=== PATIENT | male | born 1940 | race African-American/Black ===

== ENCOUNTER 2016-09-24 13:50 | Emergency (ER) | payer MEDICARE, OTHER ==
--- NOTE | 2016-09-24 14:12 | ED Physician Documentation ---
PD HPI SYNCOPE - Stated complaint Stated Complaint: PASSED OUT/GLF - Chief complaint Chief Complaint: Cardiac - History obtained from History obtained from: Patient - History of Present Illness Witnessed: Unwitnessed (but heard a thud from next room and went to him within seconds and he was on floor just awakening, so very brief LOC.) Timing - onset: How many minutes ago (45) Duration: Seconds Preceding symptoms: Abdominal pain (he says he was feeling okay during the day, had finished eating dinner with , and was clearing dishes from table ( in kitchen) and he felt onset of some nausea and epigastric discomfort for just a moment and then was aware of awakening on the floor. No lightheadedness per se.), Nausea / vomiting. No: Headache, Chest pain Associated symptoms: No: Headache, Chest pain, Palpitations, Dyspnea, Nausea / vomiting Contributing factors: Recent med change (he moved to [facility] from [place] couple months ago and had not established local PMD as yet (appt in a week, set up about a month ago). He has been off all his medications for about a month.) Injury occurred: Fell. No: Head injury, Neck injury Similar symptoms before: Diagnosis (had this occur once before when his AICD went off.) Recently seen: Not recently seen Review of Systems Constitutional: denies: Fever Nose: denies: Rhinorrhea / runny nose, Congestion Throat: denies: Sore throat Cardiac: denies: Chest pain / pressure, Palpitations, Pedal edema, Calf pain Respiratory: denies: Dyspnea, Cough, Wheezing GI: reports: Abdominal Pain (just for a moment prior to fainting, had felt okay earlier in the day.), Nausea. denies: Vomiting, Diarrhea : denies: Dysuria, Frequency Skin: denies: Rash, Lesions Musculoskeletal: denies: Neck pain, Back pain, Extremity swelling Neurologic: denies: Focal weakness, Numbness, Altered mental status, Headache, Head injury Endocrine: denies: Weight loss Immunocompromised: denies: Immunocompromised PD PAST MEDICAL HISTORY - Past Medical History Cardiovascular: Coronary artery disease, Arrhythmia (with AICD in place and has had it fire a few times over years. ) Respiratory: None Neuro: None Endocrine/Autoimmune: None - Present Medications Home Medications: Ambulatory Orders Medication Instructions Recorded Confirmed Amiodarone HCl 200 mg PO DAILY #15 tablet 09/24/16 Magnesium Chloride [Magnesium Dr] 64 mg PO DAILY #15 tablet.dr 09/24/16 Potassium Chloride 10 meq PO DAILY #15 tablet.er 09/24/16 Torsemide 20 mg PO DAILY #15 tablet 09/24/16 Warfarin [Coumadin] 5 mg PO DAILY #15 tablet 09/24/16 - Allergies Allergies/Adverse Reactions: Allergies Allergy/AdvReac Type Severity Reaction Status Date / Time codeine AdvReac Emesis Verified 09/24/16 13:58 - Living Situation Living Situation: reports: With spouse/s.o. Living Arrangement: reports: At home - Social History Does the pt smoke?: No Does the pt drink ETOH?: No Does the pt have substance abuse?: No - Family History Family history: reports: CAD PD ED PE NORMAL - Vitals Vital signs reviewed: Yes - General General: Alert and oriented X 3, No acute distress, Well developed/nourished - HEENT HEENT: Atraumatic, Ears normal, Pharynx benign - Neck Neck: Supple, no meningeal sign, No adenopathy - Cardiac Cardiac: RRR, No murmur, Other (AICD pouch left chest without signs of infection nor tenderness. ) - Respiratory Respiratory: Clear bilaterally - Abdomen Abdomen: Soft, Non tender - Back Back: No CVA TTP, No spinal TTP - Derm Derm: Normal color, Warm and dry - Extremities Extremities: No tenderness to palpate, Normal ROM s pain, No edema, No calf tenderness / cord - Neuro Neuro: Alert and oriented X 3, public works commissioner 2-12 intact, No motor deficit, No sensory deficit, Normal speech, Other - Psych Psych: Normal mood, Normal affect Results - Vitals Vitals: Oxygen O2 Source Room air - Labs Labs: Laboratory Tests 09/24/16 09/24/16 09/24/16 14:15 14:15 14:15 WBC 5.9 RBC 4.25 L Hgb 13.4 L Hct 40.1 L MCV 94.4 H MCH 31.6 H MCHC 33.4 RDW 15.8 H Plt Count 178 MPV 7.4 Neut # 3.1 Lymph # 1.9 [place] # 0.6 Eos # 0.1 Baso # 0.1 Absolute Nucleated RBC 0.00 Nucleated RBCs 0.0 Sodium 140 Potassium 3.4 L Chloride 101 Carbon Dioxide 31 Anion Gap 8.0 BUN 16 Creatinine 1.2 Estimated GFR (MDRD) 71 L Glucose 151 H Calcium 9.1 Magnesium 2.1 Total Bilirubin 1.3 H AST 30 ALT 36 Alkaline Phosphatase 91 Troponin I < 0.04 B-Natriuretic Peptide Total Protein 7.2 Albumin 3.9 Globulin 3.3 Albumin/Globulin Ratio 1.2 Lipase 16 L 09/24/16 14:15 WBC RBC Hgb Hct MCV MCH MCHC RDW Plt Count MPV Neut # Lymph # [place] # Eos # Baso # Absolute Nucleated RBC Nucleated RBCs Sodium Potassium Chloride Carbon Dioxide Anion Gap BUN Creatinine Estimated GFR (MDRD) Glucose Calcium Magnesium Total Bilirubin AST ALT Alkaline Phosphatase Troponin I B-Natriuretic Peptide 611 H Total Protein Albumin Globulin Albumin/Globulin Ratio Lipase PD MEDICAL DECISION MAKING - ED course Complexity details: considered differential (concern for possible AICD firing/ dysrhythmia (if so, it is good the AICD fired). We tried to interrogate the AICD here but could not get the info to download to [employer]). So unable to verify if it was arrhythmia. ), d/w network security consultant ([place], Cardiology at [place], who felt it not crucial to interrogate the AICD, since even if it did go off, the treatment would be resuming his antiarrhythmics he has been out of, so will give Rx for meds he needs to be on sooner, and then new PMD appt in next couple of weeks can recheck and also get his other meds refilled ( noncrucial ones like statin). ) Departure - Departure Disposition: 01 Home, Self Care Clinical Impression: Syncope Qualifiers: Syncope type: unspecified Qualified Code(s): R55 - Syncope and collapse Condition: Stable Record reviewed to determine appropriate education?: Yes Instructions: ED Fainting Unkn Cause, ED Syncope Vasovagal Follow-Up: Vicki Chavez MD [Provider Admit Priv/Credential] - [facility] Group] Prescriptions: Amiodarone HCl 200 mg PO DAILY #15 tablet Warfarin [Coumadin] 5 mg PO DAILY #15 tablet Magnesium Chloride [Magnesium Dr] 64 mg PO DAILY #15 tablet. Potassium Chloride 10 meq PO DAILY #15 tablet.er Torsemide 20 mg PO DAILY #15 tablet Comments: Resume your usual medications (I wrote prescriptions for the ones that you should start right away, and then Dr. Sears can take care of the rest when he sees you in upcoming appt). I left off the Benazapril for now, to see how your BP does without it first. The other are more targeted at heart function and rhythm. Also call Cardiology to set up an appt to get a regular Cardiology group in this area. I talked with the on-call Customer Success Specialist today about the medication doses, and he also felt it was okay to be discharged home given how good you look. Discharge Date/Time: 09/24/16 16:35
[2016-09-24 14:58] LABS: BASOPHILS # (AUTO) 0.1 10^3/uL (0.0-0.1); BASOPHILS % (AUTO) 1.1 %; EOSINOPHILS # (AUTO) 0.1 10^3/uL (0.0-0.7); EOSINOPHILS % (AUTO) 2.5 %; HCT - HEMATOCRIT 40.1 % (42.0-52.0); HGB - HEMOGLOBIN 13.4 g/dL (14.0-18.0); LYMPHOCYTES # (AUTO) 1.9 10^3/uL (1.5-3.5); LYMPHOCYTES % (AUTO) 32.7 %; MEAN CORPUSCULAR HEMOGLOBIN 31.6 pg (27.0-31.0); MEAN CORPUSCULAR HGB CONC 33.4 g/dL (32.0-36.0); MEAN CORPUSCULAR VOLUME 94.4 fL (80.0-94.0); MEAN PLATELET VOLUME 7.4 fL (7.4-11.4); MONOCYTES # (AUTO) 0.6 10^3/uL (0.0-1.0); MONOCYTES % (AUTO) 10.5 %; NEUTROPHILS # (AUTO) 3.1 10^3/uL (1.5-6.6); NEUTROPHILS % (AUTO) 53.2 %; RED BLOOD COUNT 4.25 10^6/uL (4.70-6.10); RED CELL DISTRIBUTION WIDTH 15.8 % (12.0-15.0); UNCORRECTED WHITE BLOOD COUNT 5.9 x10^3/uL; WHITE BLOOD COUNT 5.9 x10^3/uL (4.8-10.8)
[2016-09-24 15:06] LABS: ALBUMIN/GLOBULIN RATIO 1.2 (1.0-2.2); BILIRUBIN,TOTAL 1.3 mg/dL (0.2-1.0); CALCIUM 9.1 mg/dL (8.5-10.3); CREATININE 1.2 mg/dL (0.6-1.2); MAGNESIUM 2.1 mg/dL (1.7-2.8); POTASSIUM 3.4 mmol/L (3.5-5.0); TOTAL PROTEIN 7.2 g/dL (6.7-8.2)
--- NOTE | 2016-09-24 15:20 | XRAY Preliminary Report ---
Exam: XR Chest 2 View PA/LAT IMPRESSION: No radiographically apparent acute abnormality in the chest. [facility] SITE ID: [id number]
--- NOTE | 2016-09-24 15:23 | XRAY Report ---
EXAM: CHEST RADIOGRAPHY EXAM DATE: 09/24/2016 02:53 PM. CLINICAL HISTORY: Syncope today. COMPARISON: None. TECHNIQUE: 2 views. FINDINGS: Lungs/Pleura: Accentuated interstitial markings appear chronic. Densities with curved margins overlyi ng the bilateral lung bases are likely secondary to artifact from overlying soft tissue. No focal con solidation evident. Blunting of the right costophrenic angle but no large pleural effusion bilaterall y. No pneumothorax. Mild hyperinflation. Mediastinum: Mild enlargement of the cardiac silhouette. Tortuous, atherosclerotic thoracic aorta. Anguiano rgical clips in the mediastinum. Other: Left chest dual-lead cardiac conduction device is in expected position. Status post median tara rnotomy. IMPRESSION: No radiographically apparent acute abnormality in the chest. [facility] Referring Provider Line: [phone] SITE ID: [id number]
[2016-09-24] MEDS ORDERED: POTASSIUM BICARB 25 MEQ TABLET PO STA (15:35)
[2016-09-24] MEDS ORDERED: POTASSIUM BICARB 25 MEQ TABLET PO ONE (15:40)
[2016-09-24 16:32] VITALS: BP 138/74
== END 2016-09-24 16:35 | disposition home or self-care (01) ==
LOC: ED 13:50
DX: R55 Syncope and collapse (principal); I44.7 Left bundle-branch block, unspecified; I25.10 Atherosclerotic heart disease of native coronary artery without angina pectoris; Z95.810 Presence of automatic (implantable) cardiac defibrillator; Z79.01 Long term (current) use of anticoagulants
CPT/HCPCS: 36415; 71020; 80053; 83690; 83735; 83880; 84484; 85025; 93005; 99284; A9270

== ENCOUNTER 2016-10-11 09:34 | Outpatient (CLI) | payer MEDICARE, OTHER | END 2016-10-11 09:35 | disposition home or self-care (01) | LOC: LAB.F 09:34 | PROVIDERS: ATTEND Family Medicine | DX: I48.91 Unspecified atrial fibrillation (principal) | CPT/HCPCS: 85610 ==

== ENCOUNTER 2016-10-25 08:50 | Outpatient (CLI) | payer MEDICARE, OTHER | END 2016-10-25 08:51 | disposition home or self-care (01) | LOC: LAB.F 08:50 | PROVIDERS: ATTEND Family Medicine | DX: I48.91 Unspecified atrial fibrillation (principal) | CPT/HCPCS: 85610 ==

== ENCOUNTER 2016-12-06 09:20 | Outpatient (CLI) | payer MEDICARE, OTHER | END 2016-12-06 09:21 | disposition home or self-care (01) | LOC: LAB.F 09:20 | PROVIDERS: ATTEND Family Medicine | DX: I48.91 Unspecified atrial fibrillation (principal) | CPT/HCPCS: 85610 ==

== ENCOUNTER 2016-12-20 09:59 | Outpatient (CLI) | payer MEDICARE, OTHER | END 2016-12-20 10:00 | disposition home or self-care (01) | LOC: LAB.F 09:59 | PROVIDERS: ATTEND Family Medicine | DX: I48.91 Unspecified atrial fibrillation (principal) | CPT/HCPCS: 85610 ==

== ENCOUNTER 2017-01-03 08:50 | Outpatient (CLI) | payer MEDICARE, OTHER | END 2017-01-03 08:51 | disposition home or self-care (01) | LOC: LAB.F 08:50 | PROVIDERS: ATTEND Family Medicine | DX: I48.91 Unspecified atrial fibrillation (principal) | CPT/HCPCS: 85610 ==

== ENCOUNTER 2017-01-31 08:53 | Outpatient (CLI) | payer MEDICARE, OTHER | END 2017-01-31 08:54 | disposition home or self-care (01) | LOC: LAB.F 08:53 | PROVIDERS: ATTEND Family Medicine | DX: I48.91 Unspecified atrial fibrillation (principal) | CPT/HCPCS: 85610 ==

== ENCOUNTER 2017-02-28 08:19 | Outpatient (CLI) | payer MEDICARE, OTHER | END 2017-02-28 08:20 | disposition home or self-care (01) | LOC: LAB.F 08:19 | PROVIDERS: ATTEND Family Medicine | DX: I48.91 Unspecified atrial fibrillation (principal) | CPT/HCPCS: 85610 ==

== ENCOUNTER 2017-03-07 08:03 | Outpatient (CLI) | payer MEDICARE, OTHER | END 2017-03-07 08:04 | disposition home or self-care (01) | LOC: LAB.F 08:03 | PROVIDERS: ATTEND Family Medicine | DX: I48.91 Unspecified atrial fibrillation (principal) | CPT/HCPCS: 85610 ==

== ENCOUNTER 2017-03-17 10:31 | Outpatient (CLI) | payer MEDICARE, OTHER ==
[2017-03-17 10:52] LABS: CALCIUM 9.6 mg/dL (8.5-10.3); CREATININE 2.1 mg/dL (0.6-1.2); MAGNESIUM 2.5 mg/dL (1.7-2.8)
== END 2017-03-17 10:32 | disposition home or self-care (01) ==
LOC: LAB 10:31
PROVIDERS: ATTEND Internal Medicine Cardiovascular Disease
DX: Z79.899 Other long term (current) drug therapy (principal)
CPT/HCPCS: 36415; 80048; 83735

== ENCOUNTER 2017-03-21 08:19 | Outpatient (CLI) | payer MEDICARE, OTHER | END 2017-03-21 08:20 | disposition home or self-care (01) | LOC: LAB.F 08:19 | PROVIDERS: ATTEND Family Medicine | DX: I48.91 Unspecified atrial fibrillation (principal) | CPT/HCPCS: 85610 ==

== ENCOUNTER 2017-04-10 10:11 | Outpatient (CLI) | payer MEDICARE, OTHER ==
[2017-04-10 11:00] LABS: CALCIUM 9.7 mg/dL (8.5-10.3); CREATININE 1.9 mg/dL (0.6-1.2)
== END 2017-04-10 10:12 | disposition home or self-care (01) ==
LOC: LAB 10:11
PROVIDERS: ATTEND Internal Medicine Cardiovascular Disease
DX: I42.0 Dilated cardiomyopathy (principal); N18.3 Chronic kidney disease, stage 3 (moderate)
CPT/HCPCS: 36415; 80048

== ENCOUNTER 2017-04-18 08:57 | Outpatient (CLI) | payer MEDICARE, OTHER ==
[2017-04-18 11:18] LABS: CALCIUM 9.5 mg/dL (8.5-10.3); CREATININE 1.9 mg/dL (0.6-1.2)
== END 2017-04-18 08:58 | disposition home or self-care (01) ==
LOC: LAB.F 08:57
PROVIDERS: ATTEND Internal Medicine Cardiovascular Disease
DX: I42.0 Dilated cardiomyopathy (principal); N18.3 Chronic kidney disease, stage 3 (moderate)
CPT/HCPCS: 36415; 80048

== ENCOUNTER 2017-05-12 14:21 | Outpatient (CLI) | payer MEDICARE, OTHER ==
[2017-05-12 15:04] LABS: BILIRUBIN,DIRECT 0.2 mg/dL (0.1-0.5); BILIRUBIN,TOTAL 1.1 mg/dL (0.2-1.0); TOTAL PROTEIN 7.2 g/dL (6.7-8.2)
== END 2017-05-12 14:22 | disposition home or self-care (01) ==
LOC: LAB 14:21
PROVIDERS: ATTEND Internal Medicine Cardiovascular Disease
DX: I48.0 Paroxysmal atrial fibrillation (principal)
CPT/HCPCS: 36415; 80076; 84443

== ENCOUNTER 2017-05-16 09:08 | Outpatient (CLI) | payer MEDICARE, OTHER | END 2017-05-16 09:09 | disposition home or self-care (01) | LOC: LAB.F 09:08 | PROVIDERS: ATTEND Family Medicine | DX: I48.91 Unspecified atrial fibrillation (principal) | CPT/HCPCS: 85610 ==

== ENCOUNTER 2017-05-23 08:23 | Outpatient (CLI) | payer MEDICARE, OTHER | END 2017-05-23 08:24 | disposition home or self-care (01) | LOC: LAB.F 08:23 | PROVIDERS: ATTEND Family Medicine | DX: I48.91 Unspecified atrial fibrillation (principal) | CPT/HCPCS: 85610 ==

== ENCOUNTER 2017-05-30 08:05 | Outpatient (CLI) | payer MEDICARE, OTHER | END 2017-05-30 08:06 | disposition home or self-care (01) | LOC: LAB.F 08:05 | PROVIDERS: ATTEND Family Medicine | DX: I48.91 Unspecified atrial fibrillation (principal) | CPT/HCPCS: 85610 ==

== ENCOUNTER 2017-06-06 08:04 | Outpatient (CLI) | payer MEDICARE, OTHER | END 2017-06-06 08:05 | disposition home or self-care (01) | LOC: LAB.F 08:04 | PROVIDERS: ATTEND Family Medicine | DX: I48.91 Unspecified atrial fibrillation (principal) | CPT/HCPCS: 85610 ==

== ENCOUNTER 2017-06-08 08:07 | Outpatient (CLI) | payer MEDICARE, OTHER ==
[2017-06-08 08:58] LABS: ALBUMIN 3.8 g/dL (3.2-5.5); BILIRUBIN,TOTAL 1.5 mg/dL (0.2-1.0); CALCIUM 9.7 mg/dL (8.5-10.3); CREATININE 1.3 mg/dL (0.6-1.2); TOTAL PROTEIN 7.5 g/dL (6.7-8.2)
[2017-06-08 09:38] LABS: THYROID STIMULATING HORMONE < 0.08 uIU/mL (0.34-5.60)
[2017-06-08 09:40] LABS: FREE T4 (FREE THYROXINE) 3.58 ng/dL (0.58-1.64)
== END 2017-06-08 08:08 | disposition home or self-care (01) ==
LOC: LAB 08:07
PROVIDERS: ATTEND Internal Medicine Cardiovascular Disease
DX: Z79.899 Other long term (current) drug therapy (principal)
CPT/HCPCS: 36415; 80053; 84439; 84443; 84481

== ENCOUNTER 2017-06-13 07:48 | Outpatient (CLI) | payer MEDICARE, OTHER | END 2017-06-13 07:49 | disposition home or self-care (01) | LOC: LAB.F 07:48 | PROVIDERS: ATTEND Family Medicine | DX: I48.91 Unspecified atrial fibrillation (principal) | CPT/HCPCS: 85610 ==

== ENCOUNTER 2017-06-27 07:17 | Outpatient (CLI) | payer MEDICARE, OTHER | END 2017-06-27 07:18 | disposition home or self-care (01) | LOC: LAB.F 07:17 | PROVIDERS: ATTEND Family Medicine | DX: I48.91 Unspecified atrial fibrillation (principal) | CPT/HCPCS: 85610 ==

== ENCOUNTER 2017-07-13 14:20 | Outpatient (CLI) | payer MEDICARE, OTHER | END 2017-07-13 14:21 | disposition home or self-care (01) | LOC: LAB.F 14:20 | PROVIDERS: ATTEND Family Medicine | DX: I48.91 Unspecified atrial fibrillation (principal) | CPT/HCPCS: 85610 ==

== ENCOUNTER 2017-07-26 09:31 | Emergency (ER) | payer MEDICARE, OTHER ==
[2017-07-26] MEDS ORDERED: IOPAMIDOL-300 100 ML VIAL IVP ONE (09:32)
--- NOTE | 2017-07-26 10:38 | ED Physician Documentation ---
History of Present Illness - Stated complaint Stated Complaint: SYNCOPAL EPISODE - Chief complaint Chief Complaint: Neuro - Additonal information Additional information: hx from pt 77 male low EF has AICD is on coumadin chronic cough recently started new med for his thyroid was in baseline health today went to the gas station to get coffee awoke on the bathroom floor had syncope but does not recall it no CP or palp does not know if his AICD fired does not know how long he was out for awoke with a BURKETT and bump on his head and sore R buttock got up and drove back home and told his family who brought him to the ER Review of Systems Eyes: denies: Loss of vision Ears: denies: Drainage/discharge Nose: denies: Epistaxis Cardiac: denies: Chest pain / pressure, Palpitations Respiratory: reports: Cough (chronic). denies: Dyspnea GI: denies: Abdominal Pain, Nausea, Vomiting Skin: reports: Abrasion (s) (head) Musculoskeletal: reports: Extremity pain (R buttock). denies: Neck pain Neurologic: reports: Headache, Head injury. denies: Focal weakness, Numbness Endocrine: reports: Easy bruising / bleeding PD PAST MEDICAL HISTORY - Past Medical History Cardiovascular: Congestive heart failure (from ischemic cardiomyopathy. Dr. Boyd describes an EF of 15%. First hospitalization for heart failure 1988 at , second was 08/17/08 at [facility] in [place]. This will be his third. ), Coronary artery disease (First AK was ~1972 followed by ACB in [facility] , in [place], [place]. He had his chest opened 3 times because of bleeding postop. Second ACB was 1986 at [place], [place]. He then had heart failure while visiting [facility] and was air lifted to [facility] with 3rd open heart surgey in 1988.), Peripheral Vascular Disease (with artery bypass both legs (2 separate surgeries) [place], [place] 1989's), Arrhythmia (Vfib with low EF and defibrillator implant 07/14/08. Cardiac Ablation [facility] 01/03/11. Syncope with vfib 2011 and adjusted 08/16/11 and 08/31/11. Repeat episodes of Vfib 04/2015, 05/2015 and meds adjusted and K supplemented. then had 4 more times during the month of 06/2015 in [place] and [place]. Syncope in [facility] and admitted to [facility] 07/06/15 with K and Mg supplemented. Had 5th episode that month 07/08/15. Released from hospital 07/08 after new battery implant and 6th episode in the car on the way home. Since then no further episodes. ) Respiratory: None Endocrine/Autoimmune: None GI: GERD, Ulcers (gastric and seen on EGD but never bled. ), Hiatal hernia, Other (presbyesopahgus with food bolus stuck and removed via EGD 2013 at [facility], [place], [place]) : Benign prostate hypertrophy (with UTI 10/02/10) HEENT: Chronic vision loss, Glaucoma, Other (dentures) Psych: None Musculoskeletal: Chronic back pain (lower thoracic and upper lumbar for years off and on. no change. ) Derm: None - Past Surgical History Past Surgical History: Yes General: Appendectomy (after exploratory lap in 1959's), Colonoscopy (), EGD ( for ulcer disease), Other (ventral hernia repair at [facility]) Cardiovascular: Other HEENT: Other (Gum surgery with 7 teeth removed May and June 2010. Had remaining teeth pulled with dentures 09/2013. ) - Present Medications Home Medications: Ambulatory Orders Medication Instructions Recorded Confirmed Amiodarone HCl 200 mg PO DAILY #15 tablet 09/24/16 07/26/17 Potassium Chloride 10 meq PO DAILY #15 tablet.er 09/24/16 07/26/17 Aspirin [Adult Low Dose Aspirin EC] 81 mg PO DAILY 03/10/17 07/26/17 Atorvastatin [Lipitor] 20 mg PO QPM 03/10/17 07/26/17 Benazepril HCl 5 mg PO DAILY 03/10/17 07/26/17 Folic Acid 800 mcg PO DAILY 03/10/17 07/26/17 Metoprolol Succinate/Hctz 50 mg PO DAILY 03/10/17 07/26/17 [Metoprolol ER-Hctz 50-12.5 mg] Cholecalciferol (Vitamin D3) 2,000 unit PO DAILY 03/11/17 07/26/17 [Vitamin D3] Cyanocobalamin (Vitamin B-12) 500 mcg SL DAILY 03/11/17 07/26/17 [Vitamin B-12 (500 mcg sublingual)] Latanoprost [Xalatan] 1 drops EACHEYE QPM 03/11/17 07/26/17 Magnesium Oxide [Mag Ox] 400 mg PO DAILY 03/11/17 07/26/17 [place]-3 Acid Ethyl Esters 1,400 mg PO DAILY 03/11/17 07/26/17 Pyridoxine HCl [Vitamin B-6] 100 mg PO DAILY 03/11/17 07/26/17 Melatonin 5 mg PO QPM PRN 07/26/17 07/26/17 Omeprazole 10 mg PO PRN PRN 07/26/17 07/26/17 Torsemide 20 mg PO DAILY 07/26/17 07/26/17 Warfarin [Coumadin] 3 mg PO DAILY 07/26/17 07/26/17 methIMAzole [Methimazole] 20 mg PO DAILY 07/26/17 07/26/17 - Allergies Allergies/Adverse Reactions: Allergies Allergy/AdvReac Type Severity Reaction Status Date / Time codeine AdvReac Emesis Verified 07/26/17 09:45 - Social History Does the pt smoke?: No Smoking Status: Never smoker Does the pt drink ETOH?: No Does the pt have substance abuse?: No - Immunizations Immunizations are current?: Yes Immunizations: TDAP >10years/unknown - POLST Patient has POLST: No POLST Status: DNR PD ED PE NORMAL - Vitals Vital signs reviewed: Yes - General General: Alert and oriented X 3 - HEENT HEENT: PERRL. No: Atraumatic (abrasion and TTP top of scalp) - Neck Neck: No bony TTP - Cardiac Cardiac: RRR. No: No murmur (+ murmur pt does not know if new) - Respiratory Respiratory: No respiratory distress, Clear bilaterally - Abdomen Abdomen: Soft, Non tender - Back Back: No spinal TTP, Other (TTP R buttock region no swelling, no lateral hip pain no short or rotated) - Derm Derm: Normal color - Extremities Extremities: No deformity - Neuro Neuro: Alert and oriented X 3, protective service specialist 2-12 intact, No motor deficit, No sensory deficit, Normal speech Eye Opening: Spontaneous Motor: Obeys Commands Verbal: Oriented GCS Score: 15 Results - Vitals Vitals: Vital Signs - 24 hr 07/26/17 07/26/17 09:35 13:03 Temperature 36.4 C L Heart Rate 58 L 60 Respiratory 18 16 Rate Blood Pressure 113/65 107/67 O2 Saturation 100 97 Oxygen O2 Source Room air - EKG (time done) 1011 Rate: Rate (enter#) (58) Rhythm: NSR Intervals: Wide QRS Ischemia: Non specific changes - Labs Labs: Laboratory Tests 07/26/17 07/26/17 07/26/17 10:54 10:54 10:54 WBC 6.3 RBC 4.60 L Hgb 12.3 L Hct 38.0 L MCV 82.6 MCH 26.7 L MCHC 32.3 RDW 18.1 H Plt Count 225 MPV 7.5 Neut # 4.2 Lymph # 1.1 L [place] # 0.9 Eos # 0.1 Baso # 0.1 Absolute Nucleated RBC 0.00 Nucleated RBC % 0.1 PT INR Sodium 140 Potassium 3.5 Chloride 102 Carbon Dioxide 30 Anion Gap 8.0 BUN 35 H Creatinine 1.3 H Estimated GFR (MDRD) 65 L Glucose 138 H Calcium 9.5 Troponin I < 0.04 07/26/17 10:54 WBC RBC Hgb Hct MCV MCH MCHC RDW Plt Count MPV Neut # Lymph # [place] # Eos # Baso # Absolute Nucleated RBC Nucleated RBC % PT 33.6 H INR 3.1 H Sodium Potassium Chloride Carbon Dioxide Anion Gap BUN Creatinine Estimated GFR (MDRD) Glucose Calcium Troponin I - Rads (name of study) CTH Radiology: See rad report (4 cm hypersdense mass likely meningioma rec CT with IV con) CTH with IV con Radiology: See rad report (large meningioma with vasogenic edema and shift, no hemorrhage) CT CS Radiology: See rad report (no fx) CXR Radiology: See rad report (AICD, cariomegaly, possible small effusions) PD MEDICAL DECISION MAKING - ED course ED course: went home to get AICD interrogation equipment CTH shows possible mass CTH with IV con shows meningioma with edema and shift gave decadron calling Prov consult neuro surg spoke to Dr Gaming neur surg who reviewed images - this is really an incidental finding and he does not feel pt needs transfer as there is no further wup to be done (cant have MRI 2/2 AICD) except perhaps EEG which can be done as an oupt - they will see pt in fup at neurodrug clinic [place] [facility] within 2 weeks and will call family at number provided to confirm time date location also as pt has CT X 2 over several hr with no bleeding felt no merit to place in obs for neruo checks and enxt days CT 2/2 coumadin, did not feel more steroids needed then spoke to Dr Villagran cardio at [facility] and pt did have a run of vtach this AM at the time of his gas station syncope, his AICD fired correctly, she does not feel pt needs transfer, rec he increase his amio to 200 mg three times a day, states he can safely hold his coumadin for three days aftet the head injury, and will see him in follow up in the next week, cardio office also to call family to schedule Departure - Departure Clinical Impression: V-tach, Syncope and collapse, Heart murmur, Brain mass Head injury Qualifiers: Encounter type: sequela Qualified Code(s): S09.90XS - Unspecified injury of head, sequela Condition: Fair Comments: You had a run of ventricular tachycardia this morning which is why you collapsed Your AICD fired as it was supposed to which is why you woke up again You hit your head and are on coumadin so we got a CT scan to see if there was bleeding in the brain - there was no bleeding, but we found a brain tumor called a meningioma, and we got some extra tests to further evaluate that as well. I spoke to a nerosurgeon Dr Gaming who reviewed you images - he does not feel you need to be admitted to the hospital for this tumor right now - but would like you to be seen in the neurosurgery clinic for further evaluation such as an EEG and discussion of how to manage this. And I spoke to a concrete precast moulder Dr Villagran - she recommends you increase your amiodarone to 200 mg three times a day. You should hold your coumadin for three days And you absolutely should not drive, swim, climb ladders, ride a bike etc - any activity where you or someone else could be hurt if you passed out again. Both clinics will call you to confirm the time date and location of your follow up appointments May take tylenol as needed for headache Return if worse in any way
[2017-07-26] MEDS: ACETAMINOPHEN 325 MG TABLET PO STA (10:46)
[2017-07-26 11:01] LABS: BASOPHILS # (AUTO) 0.1 10^3/uL (0.0-0.1); BASOPHILS % (AUTO) 1.3 %; EOSINOPHILS # (AUTO) 0.1 10^3/uL (0.0-0.7); EOSINOPHILS % (AUTO) 1.3 %; HGB - HEMOGLOBIN 12.3 g/dL (14.0-18.0); LYMPHOCYTES # (AUTO) 1.1 10^3/uL (1.5-3.5); LYMPHOCYTES % (AUTO) 17.4 %; MEAN CORPUSCULAR HEMOGLOBIN 26.7 pg (27.0-31.0); MEAN CORPUSCULAR HGB CONC 32.3 g/dL (32.0-36.0); MEAN CORPUSCULAR VOLUME 82.6 fL (80.0-94.0); MEAN PLATELET VOLUME 7.5 fL (7.4-11.4); MONOCYTES # (AUTO) 0.9 10^3/uL (0.0-1.0); MONOCYTES % (AUTO) 13.8 %; NEUTROPHILS # (AUTO) 4.2 10^3/uL (1.5-6.6); NEUTROPHILS % (AUTO) 66.2 %; PLT - PLATELET COUNT 225 10^3/uL (130-450); RED CELL DISTRIBUTION WIDTH 18.1 % (12.0-15.0); WHITE BLOOD COUNT 6.3 x10^3/uL (4.8-10.8)
[2017-07-26 11:13] LABS: CALCIUM 9.5 mg/dL (8.5-10.3); CREATININE 1.3 mg/dL (0.6-1.2)
[2017-07-26 11:19] LABS: INR 3.1 (0.8-1.2); PT - PROTHROMBIN TIME 33.6 secs (9.9-12.6)
--- NOTE | 2017-07-26 11:50 | CT Report ---
EXAM: CT HEAD EXAM DATE: 07/26/2017 10:47 AM. CLINICAL HISTORY: [place], [place], syncope. On Coumadin. COMPARISON: None. TECHNIQUE: Multiaxial CT images were obtained from the foramen magnum to the vertex. Reformats: Coron al. IV contrast: None. In accordance with CT protocol optimization, one or more of the following dose reduction techniques w ere utilized for this exam: automated exposure control, adjustment of mA and/or KV based on patient s ize, or use of iterative reconstructive technique. FINDINGS: Parenchyma: No intraparenchymal hemorrhage. No evidence of mass, midline shift, or CT findings of acu te infarction. James-white differentiation is distinct. Diffuse chronic microangiopathic white matter changes are evident. Extraaxial Spaces: Large left prepontine mass with potential cavernous sinus extension measures 4.5 x 3.0 x 2.9 cm. Attenuation 40 HU. Ventricles: The ventricles and cortical sulci are enlarged, consistent with age-related tissue loss. Sinuses and orbits: Imaged paranasal sinuses, orbits, and mastoids show no significant abnormality. Bones: No evidence of fracture or calvarial defect. Other: Dense atherosclerotic arterial calcifications. IMPRESSION: 1. 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 Patient's AIC D is likely a contraindication for MRI. Suggest contrast enhanced head CT. 2. Generalized age-related cortical atrophic changes. 3. No intracranial hemorrhage evident. Exam discussed with Dr. Singletary on day of study at 11:45 AM. [facility] Referring Provider Line: [phone] SITE ID: [id number]
--- NOTE | 2017-07-26 11:56 | CT Report ---
EXAM: CT CERVICAL SPINE WITHOUT CONTRAST DATE: 07/26/2017 10:47 AM. HISTORY: Fall with head injury. COMPARISONS: None. TECHNIQUE: Thin-section axial images were acquired of the cervical spine without contrast. Post-proce ssing: Coronal and sagittal reformats. Other: None. In accordance with CT protocol optimization, one or more of the following dose reduction techniques w ere utilized for this exam: automated exposure control, adjustment of mA and/or KV based on patient s ize, or use of iterative reconstructive technique. FINDINGS: Alignment: Mild convex left cervical scoliosis. Bones: No fracture or bone lesion. Interspace Levels/Facets: Mild right neural foraminal narrowing at C3-C4 and C4-C5 levels due to unco vertebral joint hypertrophy. Right C4-C5 facet hypertrophy. Mild right C5-C6 uncovertebral joint hype rtrophy. Significant loss of disk space height at C4-C5 through C6-C7 levels. Musculature: Normal. No fatty atrophy. Other: The paravertebral and prevertebral soft tissues are unremarkable. Right apical lung process. A ICD lead noted within left subclavian vein. IMPRESSION: 1. Moderate cervical spine degenerative changes. 2. Scoliosis. 3. No fracture evident. [facility] Referring Provider Line: [phone] SITE ID: [id number]
--- NOTE | 2017-07-26 11:58 | XRAY Report ---
EXAM: CHEST RADIOGRAPHY EXAM DATE: 07/26/2017 11:44 AM. CLINICAL HISTORY: Cough syncope AICD. COMPARISON: Chest x-ray 03/10/2017. TECHNIQUE: 2 views. FINDINGS: Lungs/Pleura: Right costophrenic angle blunting may be mildly decreased compared to 03/10/2017. Ques tion scarring versus small pleural effusion. Mediastinum: Enlarged cardiac silhouette with similar appearance to prior chest x-ray. Sternotomy. Left subclavian AICD. Other: Diffuse osteopenia. IMPRESSION: 1. Right costophrenic angle blunting may be mildly decreased compared to 03/10/2017. Question scarrin g versus small pleural effusion. 2. Enlarged cardiac silhouette with similar appearance to prior chest x-ray. 3. Left subclavian AICD. [facility] Referring Provider Line: [phone] SITE ID: [id number]
--- NOTE | 2017-07-26 11:59 | XRAY Report ---
EXAM: RIGHT HIP AND PELVIS RADIOGRAPHY EXAM DATE: 07/26/2017 11:45 AM. HISTORY: Fall this morning. Right hip injury. COMPARISONS: None. TECHNIQUE: 1 view of the pelvis and 1 view of the hip. Crosstable lateral right hip film. FINDINGS: Bones: Normal. No fracture or bone lesion. Joints: The bilateral hip, pubis symphysis, and sacroiliac joints are preserved. Soft Tissues: Atherosclerotic arterial calcifications. IMPRESSION: No radiographic evidence for fracture. [facility] Referring Provider Line: [phone] SITE ID: [id number]
[2017-07-26] MEDS ORDERED: IOPAMIDOL-300 100 ML VIAL ONE (12:13)
--- NOTE | 2017-07-26 13:30 | CT Report ---
EXAM: CT HEAD WITH CONTRAST EXAM DATE: 07/26/2017 12:23 PM. CLINICAL HISTORY: Mass seen on unenhanced CT head performed earlier today. COMPARISON: Prior unenhanced CT head and cervical spine 07/26/2017 performed earlier today. TECHNIQUE: Multiaxial CT images were obtained from the foramen magnum to the vertex. Reformats: Coron al. IV contrast: 100 cc [id number]. In accordance with CT protocol optimization, one or more of the following dose reduction techniques w ere utilized for this exam: automated exposure control, adjustment of mA and/or KV based on patient s ize, or use of iterative reconstructive technique. Findings: Relevant images are indicated (image number, series number). Again seen is a suspected larg e extra-axial mass encompassing the left side cavernous sinus, left posterior tentorium, left sphenoi d wing consistent with a meningioma demonstrated diffuse homogenous enhancement, with scattered intri nsic vascularity, overall dimensions are similar to that described previously on the earlier unenhanc ed CT head and measure 4.3 x 4.7 x 3.9 cm AP by transverse by sagittal, with vasogenic edema within t he left temporal lobe, margins appear distinct with extension upon the left posterior 10th for him, p artial effacement of the pre-pontine cistern with mild contact, mass effect upon the sydnie, partial ef facement of the left CP angle. Again seen is moderate dilation of the ventricles, at the foramen of M onroe there is 5.6 mm [id number] midline shift. There is no herniation. There is no hemorrhage. Th ere are no other areas of suspicious enhancement of the brain, meninges. Orbital contents unremarkabl e. Impression: 1. Large left para cavernous extrinsic mass consistent with large meningioma spreading along the left greater wing of the sphenoid, left posterior tentorium, partially effacing the left pre-pontine cist maximiliano, left CP angle, also effacing the left temporal lobe, occupying a portion of the left middle cran ial fossa, it is seen significant focal vasogenic edema within the left temporal lobe, also producing 5.6 mm left to right midline shift, with moderate ventricular enlargement consistent with at least p artial ventricular entrapment. There is no herniation. Maximum dimension at least 4.7 cm diameter. Th ere is diffuse enhancement with intrinsic significant vascularity. Consider dedicated MRI brain IAC p rotocol with contrast for further characterization especially of the small structures surrounding the cavernous sinus, and cranial nerve involvement. [facility] Referring Provider Line: [phone] SITE ID: [id number]
[2017-07-26] MEDS: DEXAMETHASONE 10 MG/ML VIAL IVP STA (13:45)
[2017-07-26 17:23] VITALS: BP 110/62
[2017-07-26] MEDS: IOPAMIDOL-300 100 ML VIAL IVP ONE (17:33)
== END 2017-07-26 17:21 | disposition home or self-care (01) ==
LOC: ED 09:31
DX: I47.2 Ventricular tachycardia (principal); G93.9 Disorder of brain, unspecified; R55 Syncope and collapse; R01.1 Cardiac murmur, unspecified; S09.90XA Unspecified injury of head, initial encounter; W18.39XA Other fall on same level, initial encounter; Z95.810 Presence of automatic (implantable) cardiac defibrillator; Z79.01 Long term (current) use of anticoagulants; I50.9 Heart failure, unspecified; I25.10 Atherosclerotic heart disease of native coronary artery without angina pectoris; I25.2 Old myocardial infarction; K21.9 Gastro-esophageal reflux disease without esophagitis; Z87.11 Personal history of peptic ulcer disease; N40.0 Benign prostatic hyperplasia without lower urinary tract symptoms
CPT/HCPCS: 36415; 70450; 70460; 71046; 72125; 80048; 84484; 85025; 85610; 93005; 96374; 99284

== ENCOUNTER 2017-08-03 15:50 | Outpatient (CLI) | payer MEDICARE, OTHER | END 2017-08-03 15:51 | LOC: LAB.F 15:50 | PROVIDERS: ATTEND Family Medicine | DX: I48.91 Unspecified atrial fibrillation (principal) | CPT/HCPCS: 85610 ==

== ENCOUNTER 2017-08-14 09:45 | Outpatient (CLI) | payer MEDICARE, OTHER | END 2017-08-14 09:46 | disposition home or self-care (01) | LOC: LAB.F 09:45 | PROVIDERS: ATTEND Family Medicine | DX: I48.91 Unspecified atrial fibrillation (principal) | CPT/HCPCS: 85610 ==

== ENCOUNTER 2017-08-18 12:30 | Emergency (ER) | payer MEDICARE, OTHER ==
--- NOTE | 2017-08-18 14:24 | ED Physician Documentation ---
History of Present Illness - Stated complaint Stated Complaint: L FOREARM LAC - Chief complaint Chief Complaint: General - History obtained from History obtained from: Patient, Family (Spouse) - Additonal information Additional information: The patient is a 77-year-old male with history of cardiac rhythm disturbance, on Coumadin, who presents with bleeding from a skin tear on his left forearm. He fell this morning when getting up from a chair, cutting his left forearm against furniture. He denies any other injuries, and denies loss of consciousness. He was seen by his primary physician, and Steri-Strips were applied to the wound. However while driving home he noticed bleeding through the wound dressing. He is right hand dominant. Tetanus status is up-to-date. Review of Systems Ears: denies: Tinnitus/ringing Cardiac: denies: Chest pain / pressure Respiratory: denies: Dyspnea, Cough GI: denies: Abdominal Pain, Nausea, Vomiting : denies: Dysuria Skin: reports: Laceration (s). denies: Rash Musculoskeletal: denies: Neck pain, Back pain Neurologic: denies: Focal weakness, Numbness, Head injury, LOC PD PAST MEDICAL HISTORY - Past Medical History Cardiovascular: Congestive heart failure (from ischemic cardiomyopathy. Dr. Boyd describes an EF of 15%. First hospitalization for heart failure 1988 at , second was 08/17/08 at [facility] in [place]. This will be his third. ), Coronary artery disease (First NM was ~1972 followed by ACB in [facility] , in [place], [place]. He had his chest opened 3 times because of bleeding postop. Second ACB was 1986 at [place], [place]. He then had heart failure while visiting [facility] and was air lifted to [facility] with 3rd open heart surgey in 1988.), Peripheral Vascular Disease (with artery bypass both legs (2 separate surgeries) [place], [place] 1989's), Arrhythmia (Vfib with low EF and defibrillator implant 07/14/08. Cardiac Ablation [facility] 01/03/11. Syncope with vfib 2011 and adjusted 08/16/11 and 08/31/11. Repeat episodes of Vfib 04/2015, 05/2015 and meds adjusted and K supplemented. then had 4 more times during the month of 06/2015 in [place] and [place]. Syncope in [facility] and admitted to [facility] 07/06/15 with K and Mg supplemented. Had 5th episode that month 07/08/15. Released from hospital 07/08 after new battery implant and 6th episode in the car on the way home. Since then no further episodes. ) Respiratory: None Endocrine/Autoimmune: None GI: GERD, Ulcers (gastric and seen on EGD but never bled. ), Hiatal hernia, Other (presbyesopahgus with food bolus stuck and removed via EGD 2013 at [place], [place]) : Benign prostate hypertrophy (with UTI 10/02/10) HEENT: Chronic vision loss, Glaucoma, Other (dentures) Psych: None Musculoskeletal: Chronic back pain (lower thoracic and upper lumbar for years off and on. no change. ) Derm: None - Past Surgical History Past Surgical History: Yes General: Appendectomy (after exploratory lap in s), Colonoscopy (), EGD ( for ulcer disease), Other (ventral hernia repair at [facility]) Cardiovascular: Other HEENT: Other (Gum surgery with 7 teeth removed May and June 2010. Had remaining teeth pulled with dentures 09/2013. ) - Present Medications Home Medications: Ambulatory Orders Medication Instructions Recorded Confirmed Amiodarone HCl 200 mg PO DAILY #15 tablet 09/24/16 07/26/17 Potassium Chloride 10 meq PO DAILY #15 tablet.er 09/24/16 07/26/17 Aspirin [Adult Low Dose Aspirin EC] 81 mg PO DAILY 03/10/17 07/26/17 Atorvastatin [Lipitor] 20 mg PO QPM 03/10/17 07/26/17 Benazepril HCl 5 mg PO DAILY 03/10/17 07/26/17 Folic Acid 800 mcg PO DAILY 03/10/17 07/26/17 Metoprolol Succinate/Hctz 50 mg PO DAILY 03/10/17 07/26/17 [Metoprolol ER-Hctz 50-12.5 mg] Cholecalciferol (Vitamin D3) 2,000 unit PO DAILY 03/11/17 07/26/17 [Vitamin D3] Cyanocobalamin (Vitamin B-12) 500 mcg SL DAILY 03/11/17 07/26/17 [Vitamin B-12 (500 mcg sublingual)] Latanoprost [Xalatan] 1 drops EACHEYE QPM 03/11/17 07/26/17 Magnesium Oxide [Mag Ox] 400 mg PO DAILY 03/11/17 07/26/17 [place]-3 Acid Ethyl Esters 1,400 mg PO DAILY 03/11/17 07/26/17 Pyridoxine HCl [Vitamin B-6] 100 mg PO DAILY 03/11/17 07/26/17 Melatonin 5 mg PO QPM PRN 07/26/17 07/26/17 Omeprazole 10 mg PO PRN PRN 07/26/17 07/26/17 Torsemide 20 mg PO DAILY 07/26/17 07/26/17 Warfarin [Coumadin] 3 mg PO DAILY 07/26/17 07/26/17 methIMAzole [Methimazole] 20 mg PO DAILY 07/26/17 07/26/17 - Allergies Allergies/Adverse Reactions: Allergies Allergy/AdvReac Type Severity Reaction Status Date / Time codeine AdvReac Emesis Verified 08/18/17 13:08 - Social History Does the pt smoke?: No Smoking Status: Never smoker Does the pt drink ETOH?: No Does the pt have substance abuse?: No - Immunizations Immunizations are current?: Yes Immunizations: TDAP >10years/unknown - POLST Patient has POLST: No POLST Status: DNR PD ED PE NORMAL - Vitals Vital signs reviewed: Yes (Borderline diastolic hypertension.) - General General: Alert and oriented X 3, Other (Somewhat frail-appearing elderly male, who ambulated into the emergency department without difficulty.) - HEENT HEENT: Atraumatic - Neck Neck: No bony TTP - Cardiac Cardiac: RRR - Respiratory Respiratory: No respiratory distress, Clear bilaterally - Back Back: No spinal TTP - Derm Derm: No rash - Extremities Extremities: No deformity, Normal ROM s pain, Other (There is a 4 cm, irregularly-shaped skin tear on the lateral aspect of the left forearm. The wound edges are closed with Steri-Strips. Blood oozes from the wound. Distal neurovascular is intact.) - Neuro Neuro: Alert and oriented X 3, No motor deficit, Normal speech Results - Vitals Vitals: Oxygen O2 Source Room air - Labs Labs: Laboratory Tests 08/18/17 13:41 Whole Blood INR 2.5 H PD MEDICAL DECISION MAKING - ED course Complexity details: re-evaluated patient, considered differential, d/w patient, d/w family ED course: The patient presents with a superficial skin tear to the left forearm, with ongoing bleeding while on Coumadin with a therapeutic INR of 2.5. Treatment in the emergency department included cleaning of the wound, application of nonadhesive dressing and compression wrap. He is observed in the emergency department for 20 minutes following the application of dressing, and there was no evidence of bleeding through the dressing. I discussed with him and his appropriate wound care, as well as potentially worrisome signs or symptoms that should prompt reevaluation in the emergency department. - Sepsis Event Vital Signs: Oxygen O2 Source Room air Departure - Departure Disposition: Home, Self Care Clinical Impression: Anticoagulant long-term use Skin tear of forearm without complication Qualifiers: Encounter type: initial encounter Laterality: left Qualified Code(s): S51.812A - Laceration without foreign body of left forearm, initial encounter Condition: Stable Instructions: ED Avulsion Dermal Follow-Up: True Sears MD [Provider Admit Priv/Credential] - Comments: Keep a pressure dressing on the wound for the next 2 days. You can change the dressing daily. Follow up with your primary physician as planned. Return to the emergency department if you develop excessive bleeding, any sign of infection, or otherwise worsening symptoms. Discharge Date/Time: 08/18/17 14:58
[2017-08-18 15:58] VITALS: BP 118/90
== END 2017-08-18 14:58 | disposition home or self-care (01) ==
LOC: ED 12:30
DX: S51.812A Laceration without foreign body of left forearm, initial encounter (principal); W22.03XA Walked into furniture, initial encounter; I50.9 Heart failure, unspecified; Z79.01 Long term (current) use of anticoagulants; I25.10 Atherosclerotic heart disease of native coronary artery without angina pectoris; I25.2 Old myocardial infarction; K21.9 Gastro-esophageal reflux disease without esophagitis; Z87.11 Personal history of peptic ulcer disease
CPT/HCPCS: 85610; 99283; 99284

== ENCOUNTER 2017-09-05 08:10 | Outpatient (CLI) | END 2017-09-05 08:11 | disposition home or self-care (01) ==

== ENCOUNTER 2017-10-03 08:19 | Outpatient (CLI) | payer MEDICARE, OTHER | END 2017-10-03 08:20 | disposition home or self-care (01) | LOC: LAB.F 08:19 | PROVIDERS: ATTEND Family Medicine | DX: I48.91 Unspecified atrial fibrillation (principal) | CPT/HCPCS: 85610 ==

== ENCOUNTER 2017-10-10 09:07 | Outpatient (CLI) | payer MEDICARE, OTHER | END 2017-10-10 09:08 | disposition home or self-care (01) | LOC: LAB.F 09:07 | PROVIDERS: ATTEND Family Medicine | DX: I48.91 Unspecified atrial fibrillation (principal) | CPT/HCPCS: 85610 ==

== ENCOUNTER 2017-10-17 08:56 | Outpatient (CLI) | payer MEDICARE, OTHER | END 2017-10-17 08:57 | disposition home or self-care (01) | LOC: LAB.F 08:56 | PROVIDERS: ATTEND Family Medicine | DX: I48.91 Unspecified atrial fibrillation (principal) | CPT/HCPCS: 85610 ==

== ENCOUNTER 2017-10-24 08:30 | Outpatient (CLI) | payer MEDICARE, OTHER | END 2017-10-24 08:31 | disposition home or self-care (01) | LOC: LAB.F 08:30 | PROVIDERS: ATTEND Family Medicine | DX: I48.91 Unspecified atrial fibrillation (principal) | CPT/HCPCS: 85610 ==

== ENCOUNTER 2017-11-07 09:40 | Outpatient (CLI) | payer MEDICARE, OTHER | END 2017-11-07 09:41 | disposition home or self-care (01) | LOC: LAB.F 09:40 | PROVIDERS: ATTEND Family Medicine | DX: I48.91 Unspecified atrial fibrillation (principal) | CPT/HCPCS: 85610 ==

== ENCOUNTER 2017-11-14 10:00 | Outpatient (CLI) | payer MEDICARE, OTHER | END 2017-11-14 10:01 | disposition home or self-care (01) | LOC: LAB.F 10:00 | PROVIDERS: ATTEND Family Medicine | DX: I48.91 Unspecified atrial fibrillation (principal) | CPT/HCPCS: 85610 ==

== ENCOUNTER 2018-02-20 07:24 | Inpatient (IN) | payer MEDICARE, OTHER ==
[2018-02-20] MEDS ORDERED: FAMOTIDINE 20 MG/50 ML 50 ML IV ONE (07:47)
--- NOTE | 2018-02-20 07:56 | ED Physician Documentation ---
History of Present Illness - Stated complaint Stated Complaint: WEAKNESS/STOMACH PX - Chief complaint Chief Complaint: Abd Pain - Additonal information Additional information: hx from pt and EMR and records from [facility] that brought with her [address] Alexis discussed advanced directives with pt 02/2017 aand he was noted to be DNR DNI but no POLST is scanned into our EMR Pmhx: CAD, MS, CABG, ischemic cardiomyopathy, v fib, AICD, GERD PUD and HH dx by EGD, renal insuff, hypothyroidism believed 2/2 heart meds, meningioma being monitored, was on keppra not any more 2/2 side effects Pshx: CABG AICD EGD ventral hernia appy on xarelto among other meds to ED today CC upper abd pain waxing and waning but always there for several days worse with exertion some int CP too generally weak all over no fever cough SOA no NV some black stools now some diarrhea no dysuria no swelling Review of Systems Constitutional: reports: Fatigue. denies: Fever, Chills Throat: denies: Sore throat Cardiac: reports: Chest pain / pressure Respiratory: denies: Dyspnea GI: reports: Abdominal Pain, Bloody / black stool. denies: Nausea, Vomiting : denies: Dysuria Musculoskeletal: denies: Back pain Neurologic: reports: Generalized weakness Endocrine: reports: Easy bruising / bleeding Immunocompromised: denies: Immunocompromised PD PAST MEDICAL HISTORY - Past Medical History Cardiovascular: Congestive heart failure (from ischemic cardiomyopathy. Dr. Boyd describes an EF of 15%. First hospitalization for heart failure 1988 at , second was 08/17/08 at [facility] in [place]. This will be his third. ), Coronary artery disease (First MS was ~1972 followed by ACB in [facility], in [place], [place]. He had his chest opened 3 times because of bleeding postop. Second ACB was 1986 at [place], [place]. He then had heart failure while visiting [facility] and was air lifted to [facility] with 3rd open heart surgey in 1988.), Peripheral Vascular Disease (with artery bypass both legs (2 separate surgeries) [place], [place] s), Arrhythmia (Vfib with low EF and defibrillator implant 07/14/08. Cardiac Ablation [facility] 01/03/11. Syncope with vfib 2011 and adjusted 08/16/11 and 08/31/11. Repeat episodes of Vfib 04/2015, 05/2015 and meds adjusted and K supplemented. then had 4 more times during the month of 06/2015 in [place] and [place]. Syncope in [facility] and admitted to [facility] 07/06/15 with K and Mg supplemented. Had 5th episode that month 07/08/15. Released from hospital 07/09/15 after new battery implant and 6th episode in the car on the way home. Since then no further episodes. ) Respiratory: None Endocrine/Autoimmune: None GI: GERD, Ulcers (gastric and seen on EGD but never bled. ), Hiatal hernia, Other (presbyesopahgus with food bolus stuck and removed via EGD 2013 at [place], [place]) : Benign prostate hypertrophy (with UTI 10/02/10) HEENT: Chronic vision loss, Glaucoma, Other (dentures) Psych: None Musculoskeletal: Chronic back pain (lower thoracic and upper lumbar for years off and on. no change. ) Derm: None - Past Surgical History Past Surgical History: Yes General: Appendectomy (after exploratory lap in 1959's), Colonoscopy (s), EGD ( for ulcer disease), Other (ventral hernia repair at [facility]) Cardiovascular: Other HEENT: Other (Gum surgery with 7 teeth removed May and June 2010. Had remaining teeth pulled with dentures 09/2013. ) - Present Medications Home Medications: Ambulatory Orders Medication Instructions Recorded Confirmed Aspirin [Adult Low Dose Aspirin EC] 81 mg PO QDBREAKFAST 03/10/17 02/20/18 Benazepril HCl 5 mg PO 1200 03/10/17 02/20/18 Folic Acid 800 mcg PO QDBREAKFAST 03/10/17 02/20/18 Cholecalciferol (Vitamin D3) 2,000 unit PO QDDINNER 03/11/17 02/20/18 [Vitamin D3] Cyanocobalamin (Vitamin B-12) 500 mcg SL QDBREAKFAST 03/11/17 02/20/18 [Vitamin B-12 (500 mcg sublingual)] Latanoprost [Xalatan] 1 drops EACHEYE QPM 03/11/17 02/20/18 Magnesium Oxide [Mag Ox] 400 mg PO QDDINNER 03/11/17 02/20/18 Pyridoxine HCl [Vitamin B-6] 100 mg PO QDBREAKFAST 03/11/17 02/20/18 Omeprazole 20 mg PO QDAC 07/26/17 02/20/18 Torsemide 30 mg PO QDAC 07/26/17 02/20/18 methIMAzole [Methimazole] 5 mg PO Q2D@1000 07/26/17 02/20/18 Amiodarone HCl 200 mg PO QDAC 02/20/18 02/20/18 Metoprolol Succinate 50 mg PO QDDINNER 02/20/18 02/20/18 [place]-3/Dha/Epa/Fish Oil [Fish Oil 1 each PO BIDWM 02/20/18 02/20/18 1,360 mg Softgel] Potassium Chloride [Klor-Con 10] 10 meq PO QDBREAKFAST 02/20/18 02/20/18 Pravastatin [Pravachol] 40 mg PO QPM 02/20/18 02/20/18 Rivaroxaban [Xarelto] 15 mg PO QDDINNER 02/20/18 02/20/18 - Allergies Allergies/Adverse Reactions: Allergies Allergy/AdvReac Type Severity Reaction Status Date / Time codeine AdvReac Emesis Verified 02/20/18 07:48 - Social History Does the pt smoke?: No Smoking Status: Never smoker Does the pt drink ETOH?: No Does the pt have substance abuse?: No - Immunizations Immunizations are current?: Yes Immunizations: TDAP >10years/unknown - POLST Patient has POLST: No POLST Status: DNR PD ED PE NORMAL - Vitals Vital signs reviewed: Yes - General General: Alert and oriented X 3 - HEENT HEENT: Atraumatic, Other (very pale conj) - Neck Neck: Supple, no meningeal sign - Cardiac Cardiac: RRR (distant, slow) - Respiratory Respiratory: No respiratory distress, Clear bilaterally - Abdomen Abdomen: Soft, Other (TTP epigastric region, no palpable pulsatile mass, neg mruphys, ventral and RLQQ scars, no hernia) - Rectal Rectal: Other (brown strongly heme occult + stool QC passed) - Derm Derm: Normal color - Neuro Neuro: Alert and oriented X 3, No motor deficit, No sensory deficit, Normal speech Eye Opening: Spontaneous Motor: Obeys Commands Verbal: Oriented GCS Score: 15 Results - Vitals Vitals: Vital Signs - 24 hr 02/20/18 02/20/18 02/20/18 07:25 08:40 09:50 Temperature 36.7 C Heart Rate 64 70 71 Respiratory 16 22 16 Rate Blood Pressure 100/61 88/79 L 116/73 O2 Saturation 92 92 94 02/20/18 10:47 Temperature Heart Rate 70 Respiratory 18 Rate Blood Pressure 105/66 O2 Saturation 99 Oxygen O2 Source Room air - EKG (time done) 0734 Other comments: Other comments (paced at 70) - Labs Labs: Laboratory Tests 02/20/18 02/20/18 02/20/18 07:35 07:35 07:35 WBC 9.4 RBC 2.28 L Hgb 6.8 L* Hct 21.0 L MCV 91.9 MCH 29.9 MCHC 32.6 RDW 17.0 H Plt Count 274 MPV 7.1 L Neut # (Auto) 6.7 H Lymph # (Auto) 1.7 [place] # (Auto) 0.8 Eos # (Auto) 0.2 Baso # (Auto) 0.1 Absolute Nucleated RBC 0.06 Nucleated RBC % 0.7 Manual Slide Review Indicated Platelet Estimate NORMAL (130-450,000) Platelet Morphology NORMAL APPEARANCE RBC Morph Micro Appear 1+ MICROCYTOSIS PT INR APTT Sodium 133 L Potassium 4.6 Chloride 100 L Carbon Dioxide 26 Anion Gap 7.0 BUN 58 H Creatinine 2.0 H Estimated GFR (MDRD) 39 L Glucose 149 H Lactic Acid Calcium 9.2 Total Bilirubin 1.2 H AST 147 H ALT 186 H Alkaline Phosphatase 83 Troponin I < 0.04 Total Protein 6.7 Albumin 3.5 Globulin 3.2 Albumin/Globulin Ratio 1.1 Lipase 39 TSH Blood Type Blood Type Recheck Antibody Screen Antibody Identification Crossmatch 02/20/18 02/20/18 02/20/18 07:35 07:35 07:35 WBC RBC Hgb Hct MCV MCH MCHC RDW Plt Count MPV Neut # (Auto) Lymph # (Auto) Aiken # (Auto) Eos # (Auto) Baso # (Auto) Absolute Nucleated RBC Nucleated RBC % Manual Slide Review Platelet Estimate Platelet Morphology RBC Morph Micro Appear PT 25.4 H INR 2.3 H APTT 32.6 Sodium Potassium Chloride Carbon Dioxide Anion Gap BUN Creatinine Estimated GFR (MDRD) Glucose Lactic Acid Calcium Total Bilirubin AST ALT Alkaline Phosphatase Troponin I Total Protein Albumin Globulin Albumin/Globulin Ratio Lipase TSH 18.07 H Blood Type Blood Type Recheck O POSITIVE Antibody Screen Antibody Identification Crossmatch 02/20/18 02/20/18 08:21 08:21 WBC RBC Hgb Hct MCV MCH MCHC RDW Plt Count MPV Neut # (Auto) Lymph # (Auto) Aiken # (Auto) Eos # (Auto) Baso # (Auto) Absolute Nucleated RBC Nucleated RBC % Manual Slide Review Platelet Estimate Platelet Morphology RBC Morph Micro Appear PT INR APTT Sodium Potassium Chloride Carbon Dioxide Anion Gap BUN Creatinine Estimated GFR (MDRD) Glucose Lactic Acid 1.5 Calcium Total Bilirubin AST ALT Alkaline Phosphatase Troponin I Total Protein Albumin Globulin Albumin/Globulin Ratio Lipase TSH Blood Type O POSITIVE Blood Type Recheck Antibody Screen POSITIVE Antibody Identification Anti-E Crossmatch See Detail - Rads (name of study) CT AP Radiology: See rad report (no acute. inc attentuation of liver c/w amiodarone use, distended bladder, 4.4 cm infrarenal AAA s FF) CXR Radiology: See rad report (NACPD) PD MEDICAL DECISION MAKING - ED course ED course: GIB, likely upper given upper abd pain and hx PUD, with sig anemia in a 77 male on xarelto with underlying cardiac issues will transfuse, gave H2B and PPI, will admit for further care - will discuss TXA with admitting physician called hospitalist at [address] Alexis called back [phone] - hold TXA for now - she rec place in obs Departure - Departure Disposition: ED Place in Observation Clinical Impression: GI bleed Qualifiers: GI bleed type/associated pathology: unspecified gastrointestinal hemorrhage type Qualified Code(s): K92.2 - Gastrointestinal hemorrhage, unspecified Discharge Date/Time: 02/20/18 12:13
[2018-02-20 07:58] LABS: BASOPHILS # (AUTO) 0.1 10^3/uL (0.0-0.1); BASOPHILS % (AUTO) 0.7 %; EOSINOPHILS # (AUTO) 0.2 10^3/uL (0.0-0.7); EOSINOPHILS % (AUTO) 1.8 %; LYMPHOCYTES # (AUTO) 1.7 10^3/uL (1.5-3.5); LYMPHOCYTES % (AUTO) 17.7 %; MEAN CORPUSCULAR HEMOGLOBIN 29.9 pg (27.0-31.0); MEAN CORPUSCULAR HGB CONC 32.6 g/dL (32.0-36.0); MEAN CORPUSCULAR VOLUME 91.9 fL (80.0-94.0); MEAN PLATELET VOLUME 7.1 fL (7.4-11.4); MONOCYTES # (AUTO) 0.8 10^3/uL (0.0-1.0); MONOCYTES % (AUTO) 8.7 %; NEUTROPHILS # (AUTO) 6.7 10^3/uL (1.5-6.6); NEUTROPHILS % (AUTO) 71.1 %; PLT - PLATELET COUNT 274 10^3/uL (130-450); RED BLOOD COUNT 2.28 10^6/uL (4.70-6.10); WHITE BLOOD COUNT 9.4 x10^3/uL (4.8-10.8)
[2018-02-20 08:02] LABS: ALBUMIN 3.5 g/dL (3.2-5.5); ALBUMIN/GLOBULIN RATIO 1.1 (1.0-2.2); BILIRUBIN,TOTAL 1.2 mg/dL (0.2-1.0); CALCIUM 9.2 mg/dL (8.5-10.3); HGB - HEMOGLOBIN 6.8 g/dL (14.0-18.0); TOTAL PROTEIN 6.7 g/dL (6.7-8.2)
[2018-02-20 08:33] LABS: PLATELET ESTIMATE, MANUAL NORMAL (130-450,000) (NORMAL); PLATELET MORPHOLOGY NORMAL APPEARANCE (NORMAL)
--- NOTE | 2018-02-20 08:46 | CT Report ---
Reason: upper abd pain GIB Procedure Date: 02/20/2018 Accession Number: [id number] / [id number] Procedure: CT - Abdomen/Pelvis W/O CPT Code: FULL RESULT: EXAM: CT ABDOMEN AND PELVIS (CT KUB) EXAM DATE: 02/20/2018 08:08 AM. CLINICAL HISTORY: Upper abd pain, GIB. COMPARISONS: None. TECHNIQUE: Routine axial helical CT imaging was performed through the abdomen and pelvis without IV contrast. Reconstructions: Coronal and sagittal. In accordance with CT protocol optimization, one or more of the following dose reduction techniques were utilized for this exam: automated exposure control, adjustment of mA and/or KV based on patient size, or use of iterative reconstructive technique. FINDINGS: Lung Bases: No consolidation or effusion. Moderate cardiomegaly. Right Kidney/Ureter: No stones, hydronephrosis, or hydroureter. No perinephric fat stranding. Mild atrophy. Left Kidney/Ureter: No stones, hydronephrosis, or hydroureter. No perinephric fat stranding. Mild atrophy. 2 cm simple cyst. Other Solid Organs: Diffusely increased attenuation of the hepatic parenchyma, which can be seen with amiodarone usage or mineral deposition. Otherwise, noncontrast images of the solid organs demonstrate no gross abnormality. Gallbladder/Bile Ducts: Unremarkable. Peritoneal Cavity: No ascites or pneumoperitoneum. No bowel obstruction or abnormal stool burden. Pelvic Organs: Moderate distention of the urinary bladder. Probable prostatomegaly. Vasculature: Infrarenal saccular abdominal aortic aneurysm measures 4.4 x 3.3 cm (axial image 44). Moderate atherosclerosis. Probable femoral artery stents. Other: None. IMPRESSION: 1. No urinary tract stones or obstruction. No evidence of acute abnormality in the abdomen or pelvis. 2. Infrarenal abdominal aortic aneurysm measuring up to 4.4 cm in diameter. [facility]
--- NOTE | 2018-02-20 08:58 | XRAY Report ---
Reason: upper abd and chest pain Procedure Date: 02/20/2018 Accession Number: [id number] / [id number] Procedure: XR - Chest 2 View X-Ray CPT Code: 34543 FULL RESULT: EXAM: CHEST RADIOGRAPHY EXAM DATE: 02/20/2018 08:15 AM. CLINICAL HISTORY: Upper abd and chest pain. COMPARISON: CHEST 2 VIEW 07/26/2017 11:10 AM. TECHNIQUE: 2 views. FINDINGS: Lungs/Pleura: No focal consolidation evident. No large pleural effusion. No pneumothorax. Mild hyperinflation. Mediastinum: Moderate to marked enlargement of the cardiac silhouette as before. Other: Left subclavian dual lead cardiac conduction device stable. Sternotomy wires as before. IMPRESSION: No radiographically apparent acute abnormality in the chest. No significant change from prior. [facility]
[2018-02-20] MEDS ORDERED: SODIUM CHLORIDE FLUSH 0.9% 10 ML SYRINGE IVP PRN (11:17)
--- NOTE | 2018-02-20 11:23 | HISTORY & PHYSICAL EXAMINATION ---
Chief Complaint - Chief Complaint Chief Complaint: weakness and fatigue for a week History of Present Illness - Admitted From Admitted From:: ER/Home - History Obtained From Records Reviewed: [facility] History obtained from: Patient and Dr. Lomax Exam Limitations: [place] - History of Present Illness HPI Comment/Other: He is an absolutely claudine 77-year-old black male who moved to [facility] around 2016. [place]. It was her family that owned the [employer] [facility] which is on the corner of [address] [address] in [place]. So they have been coming to the [place] off and on for years from where they use to live in [place]. Even before he moved here, his life significantly slowed down because his episodes of ventricular fibrillation, bypass surgeries, and congestive heart failure. He had a huge [employer] in [place]. Used to take long walks doing rock hunting. Would come to [facility] to search the [facility] for agates. But by the time he moved in 2016 his mobility was diminished mainly because of cardiovascular issues. With his admission in 2017 here for CHF, he subsequently did cardiopulmonary rehab. Was able to do a lot of exercising until the end of summer 2018. Exercising sort of petered off. Initially his thought it was because of just normal "does not want to exercise". 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 Methimazole was increased from 1 tablet a day to 3 tablets a day. Was recently is being tapered down again to almost half a tablet a day because it was too effective and he was hypothyroid with his last blood test a month ago. In the last month he has been significantly more fatigued, increased abdominal bloating, and decreased exercise. Getting up in the morning to then get dressed, to then go eat breakfast is exhausting. He does not do his walks on the beach very much anymo re. In fact he hardly does any walking outside the house anymore. No edema, no orthopnea, no chest pain, no increased weight. This last week, he noticed that he was having midline abdominal aching. It was constant, unremitting, sort of like a hollow achy feeling. There is no blood in his stool. No bloody diarrhea. No bright red blood. No hematemesis. In the last day or 2 he was taking Mylanta and it seemed to help a little bit. He is on aspirin, and was switched from coumadin to xarelto for his afib. He does have a history of peptic ulcer disease back in the where an EGD showed ulcer but no active bleeding. He then had an EGD in 2013 in [facility] when he had a piece of chicken stuck in his esophagus. He came to the emergency room today when the fatigue was too great. He was evaluated by Dr. Lomax and his blood pressure was as low as 88/79 in the emergency room. He has subsequently received some IV fluids and is up to 101/63. He is afebrile, not in respiratory distress, and needing 2 L nasal cannula to saturate anywhere from 92-99%. His BUN and creatinine are 58 and 2, liver enzymes are elevated, TSH is up to 18.07, and his hemoglobin is 6.8. His previous liver function studies with his May 2017 check and February 2017 check were mildly elevated but not nearly as elevated as today. Troponins are negative. Baseline creatinine was as low as 1.2 in September 2016. For his CHF he said his torsemide doubled and his creatinine went up to 2.1 in March 2017. Was down to 1.3 in July 2017 and 2 today. Baseline hemoglobin is anywhere between 11.7-12.3. Stool is FOBT (+) and he is now admitted for chronic blood loss anemia in an elderly man with CAD and sob. History - Past Medical History Cardiovascular: reports: Congestive heart failure (from ischemic cardiomyopathy. Dr. Boyd describes an EF of 15%. First hospitalization for heart failure 1988 at , second was 08/17/08 at [facility] in [place]. This will be his third. ), Coronary artery disease (First [place] was ~1972 followed by ACB in [facility], in [place], [place]. He had his chest opened 3 times because of bleeding postop. Second ACB was 1986 at [place], [place]. He then had heart failure while visiting [facility] and was air lifted to [facility] with 3rd open heart surgey in 1988.), Peripheral Vascular Disease (with artery bypass both legs (2 separate surgeries) [place], [place] 1989's), Arrhythmia (Vfib with low EF and defibrillator implant 07/14/08. Cardiac Ablation [facility] 01/03/11. Syncope with vfib 2011 and adjusted 08/16/11 and 08/31/11. Repeat episodes of Vfib 04/2015, 05/2015 and meds adjusted and K supplemented. then had 4 more times during the month of 06/2015 in [place] and [place]. Syncope in [facility] and admitted to [facility] 07/06/15 with K and Mg supplemented. Had 5th episode that month 07/08/15. Released from hospital 07/09/15 after new battery implant and 6th episode in the car on the way home. Since then no further episodes. ) Respiratory: reports: None Endocrine/Autoimmune: reports: None GI: reports: GERD, Ulcers (gastric and seen on EGD but never bled. ), Hiatal hernia, Other (presbyesopahgus with food bolus stuck and removed via EGD 2013 at [facility], [place], [place]) : reports: Benign prostate hypertrophy (with UTI 10/02/10) HEENT: reports: Chronic vision loss, Glaucoma, Other (dentures) Psych: reports: None Musculoskeletal: reports: Chronic back pain (lower thoracic and upper lumbar for years off and on. no change. ) Derm: reports: None MRSA Hx?: No Other Past Medical History: Cataract. Meningioma - Past Surgical History General: reports: Appendectomy (after exploratory lap in 1959's), Colonoscopy (), EGD ( for ulcer disease), Other (ventral hernia repair at [facility]) Cardiovascular: reports: Other HEENT: reports: Other (Gum surgery with 7 teeth removed May and June 2010. Had remaining teeth pulled with dentures 09/2013. ) - Family & Social History Social History Notes: He was born in [facility], and moved to [place] for the weather when he was old enough. 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 He was for a short while to 1 woman and had 3 children with her. He was and visiting his mother and sister in the [place] area when he met his . She was friends with his siblings and they introduced him to her. They have subsequently been for 48 years. They lived mainly in [place] [facility] and moved up to [facility] after visiting every year. She always wanted to come back to the [facility], always wanted to be closer to her family, and they finally did it permanently in July 2016. He started smoking at the age of 26 and smoked 1-1/2 packs per day. 6 years ago he cut back to 1 cigarette a day and did 1 cigarette a day for 3 years. He quit 3 years ago. He has never had a problem with alcohol abuse or any form of recreational substance abuse. He and his live in their own home. It is single level. It is not completely handicapped accessible yet. But if he needed to be in a wheelchair and shower, the house is beginning for that. - Substance History Use: Uses substance without health or social issues: Tobacco - POLST Patient has POLST: No POLST Status: DNR Meds/Allgy - Home Medications Home Medications: Ambulatory Orders Medication Instructions Recorded Confirmed Aspirin [Adult Low Dose Aspirin EC] 81 mg PO QDBREAKFAST 03/10/17 02/20/18 Benazepril HCl 5 mg PO 1200 03/10/17 02/20/18 Folic Acid 800 mcg PO QDBREAKFAST 03/10/17 02/20/18 Metoprolol Succinate/Hctz 50 mg PO QDDINNER 03/10/17 02/20/18 [Metoprolol ER-Hctz 50-12.5 mg] Cholecalciferol (Vitamin D3) 2,000 unit PO QDDINNER 03/11/17 02/20/18 [Vitamin D3] Cyanocobalamin (Vitamin B-12) 500 mcg SL QDBREAKFAST 03/11/17 02/20/18 [Vitamin B-12 (500 mcg sublingual)] Latanoprost [Xalatan] 1 drops EACHEYE QPM 03/11/17 02/20/18 Magnesium Oxide [Mag Ox] 400 mg PO QDDINNER 03/11/17 02/20/18 Pyridoxine HCl [Vitamin B-6] 100 mg PO QDBREAKFAST 03/11/17 02/20/18 Omeprazole 20 mg PO QDAC 07/26/17 02/20/18 Torsemide 30 mg PO QDAC 07/26/17 02/20/18 methIMAzole [Methimazole] 5 mg PO Q2D@1000 07/26/17 02/20/18 Amiodarone HCl 200 mg PO QDAC 02/20/18 02/20/18 [place]-3/Dha/Epa/Fish Oil [Fish Oil 1 each PO BIDWM 02/20/18 02/20/18 1,360 mg Softgel] Potassium Chloride [Klor-Con 10] 10 meq PO QDBREAKFAST 02/20/18 02/20/18 Pravastatin [Pravachol] 40 mg PO QPM 02/20/18 02/20/18 Rivaroxaban [Xarelto] 15 mg PO QDDINNER 02/20/18 02/20/18 - Allergies Allergies/Adverse Reactions: Allergies Allergy/AdvReac Type Severity Reaction Status Date / Time codeine AdvReac Emesis Verified 02/20/18 07:48 Review of Systems - Constitutional Constitutional: reports: Fatigue, Malaise, Weakness. denies: Fever, Chills, Poor appetite, Diaphoresis, Night sweats, Weight gain, Weight loss - Eyes Eyes: denies: Pain, Irritation, Amaurosis, Blurred vision, Field loss, Vision loss - Ears, Nose & Throat Ears, Nose & Throat: reports: Hearing loss, Dentures. denies: Ear pain, Hearing aids, Tinnitus, Vertigo, Sore throat, Hoarseness, Mouth lesions, Bleeding gums - Cardiovascular Cariovascular: reports: Irregular heart rate, Palpitations, Lightheadedness, Exe rtional dyspnea, Decr. exercise tolerance. denies: Chest pain, Edema, Syncope, Orthopnea, Other - Respiratory Respiratory: reports: SOB with exertion. denies: Cough, Sputum production, Wheezing, Snoring, Orthopnea, SOB at rest - Gastrointestinal Gastrointestinal: reports: Abdominal pain, Abdominal distention, Bloating. denies: Constipation, Diarrhea, Change in bowel habits, Rectal bleeding, Black stools, Bloody stools, Nausea, Vomiting, Bile emesis, Coffee grounds emesis, Reflux/heartburn - Genitourinary Genitourinary: reports: Frequency, Nocturia (3-5 times a night). denies: Dysuria, Urgency, Hematuria, Incontinence, Flank pain, Urethral discharge - Musculoskeletal Musculoskeletal: denies: Muscle pain, Back pain, Muscle aches, Stiffness, Gout, Joint pain - Integumentary Integumentary: denies: Rash, Pruritis, Lesions, Dryness, Acne - Neurological Neurological: reports: General weakness. denies: Focal weakness, Headache, Dizziness, Numbness, Memory problems, Pre-existing deficit, Abnormal gait - Psychiatric Psychiatric: denies: Depression, Anxiety, Suicidal - Endocrine Endocrine: denies: Polyuria, Polydypsia, Polyphagia - Hematologic/Lymphatic Hematologic/Lymphatic: reports: Anemia. denies: Bruising, Petechiae, Blood clots, Lymphadenopathy Prior Level of Functionality: Because of decreasing mobility over the last year, the effort to take a bath is too great. So he does sponge baths. He is still able to get out of bed with some effort because of cardiovascular shortness of breath, get dressed, and get to the dining room table. He is to pay all the bills but stopped doing that with his last bypass surgery since it was getting harder to remember things and focus. He still can drive but has not been driving in the last year. 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 He has not been able to cut his roses much. Not walking on the beach like he likes to. Exam - Vital Signs Reviewed Vital Signs: Yes Vital Signs: Vital Signs x48h Temp Pulse Resp BP Pulse Ox 02/20/18 10:47 70 18 105/66 99 02/20/18 09:50 71 16 116/73 94 02/20/18 08:40 70 22 88/79 L 92 02/20/18 07:25 36.7 C 64 16 100/61 92 - Physical Exam General Appearance: positive: No acute distress, Alert, Other (Well-nourished well-developed elderly black male with teeth gone, delightful conversationalist. at the bedside) Eyes Bilateral: positive: PERRL, Other (Bilateral arcus senilis and muddy sclera) ENT: positive: Pharynx nml Neck: positive: No JVD. negative: Stiff neck, Carotid bruit Respiratory: negative: Chest non-tender, Wheezes, Rales, Rhonchi Cardiovascular: positive: Regular rate & rhythm (I do not hear A. fib), Systolic murmur. negative: Gallop/S4, Friction rub Abdomen: positive: Non-tender, No organomegaly, Nml bowel sounds, No distention. negative: Hepatomegaly, Splenomegaly Skin: positive: Warm, Dry Extremities: positive: Full ROM, No pedal edema Neurologic/Psychiatric: positive: Oriented x3, CN's nml (2-12), Motor nml, Weakness Conclusion/Plan - Problem List (1) Fatigue associated with anemia Conclusion/Plan: His fatigue and also be from the hypothyroidism associated with the methimazole and the overshooting of the TSH. I can understand why he and his were treating his fatigue strictly to the hypothyroidism, congestive heart failure, and not the anemia we have discovered. Plan: Admit to observation status for the anemia treatment and workup Continue to follow up with his outpatient provider with according to the TSH in the meantime continue the same lower dose of methimazole Mild hypoxemia noted, and will make sure that CHF is not contributing to this as well with a BNP (2) Chronic blood loss anemia Conclusion/Plan: He has a remote history of peptic ulcer disease in the . I doubt him to be able to get that old report. However he had an EGD in 2013 in [facility]. Plan: Get old records from [facility] General surgery consult for EGD Transfuse 2 units of blood. I rather transfused 2 then 1 in this elderly gentleman who has a reduced cardiovascular reserve and is at risk for TN and stroke (3) Acute renal failure superimposed on stage 3 chronic kidney disease Conclusion/Plan: Most likely due to hypotension, hypovolemia with the anemia. Suspect it is prerenal azotemia. Plan: Start gentle IV fluid hydration Reassess creatinine after 2 units of blood in the gentle hydration. Look to avoid putting him to congestive heart failure. Qualifiers: Acute renal failure type: unspecified Qualified Code(s): N17.9 - Acute kidney failure, unspecified; N18.3 - Chronic kidney disease, stage 3 (moderate) (4) Chronic systolic congestive heart failure, NYHA class 3 Conclusion/Plan: Fatigue and dyspnea is with minimal exertion. How much of this is from his hypothyroidism and his anemia and not true congestive heart failure? Plan: Avoid putting him into fluid overload status and watch his intake and output carefully. Resume torsemide tomorrow. Check BNP today and tomorrow. No echocardiogram since one was done recently (5) Anticoagulant long-term use Conclusion/Plan: I agree with Dr. Lomax's assessment that he is hemodynamically stable at this point. Hypotension is resolved with simple hydration. We will hold his me dications to avoid hypotension. I will not give reversal agent for the Xarelto at this time. (6) Hyperglycemia Conclusion/Plan: no previous hx of DM. Will check fasting and A1c in am. - Lab Results Fish Bones: 02/20/18 07:35 02/20/18 07:35 - EKG Results EKG Interpreted Independently: No EKG Comparison: Unchanged from prior EKG EKG Findings: A ventricular paced rhythm. No analysis attempted beyond that Core Measures - Anticipated LOS I expect patient to be DC'd or transferred within 96 hours.: Yes - DVT/VTE - Prophylaxis VTE/DVT Device ordered at admit?: Yes
[2018-02-20 11:50] LABS: INR 2.3 (0.8-1.2); PT - PROTHROMBIN TIME 25.4 secs (9.9-12.6)
[2018-02-20] MEDS ORDERED: PANTOPRAZOLE 80 MG in SODIUM CHLORIDE 0.9% 100ML 100 ML IV ONE (12:30)
[2018-02-20] MEDS: SODIUM CHLORIDE 0.9% 1,000 ML IV SCH ×2 (12:50→21:30)
[2018-02-20 13:28] LABS: BASOPHILS # (AUTO) 0.1 10^3/uL (0.0-0.1); BASOPHILS % (AUTO) 0.8 %; EOSINOPHILS # (AUTO) 0.2 10^3/uL (0.0-0.7); EOSINOPHILS % (AUTO) 2.5 %; LYMPHOCYTES # (AUTO) 1.1 10^3/uL (1.5-3.5); LYMPHOCYTES % (AUTO) 14.8 %; MEAN CORPUSCULAR HGB CONC 33.2 g/dL (32.0-36.0); MEAN CORPUSCULAR VOLUME 90.1 fL (80.0-94.0); MEAN PLATELET VOLUME 6.9 fL (7.4-11.4); MONOCYTES # (AUTO) 0.7 10^3/uL (0.0-1.0); MONOCYTES % (AUTO) 9.2 %; NEUTROPHILS # (AUTO) 5.5 10^3/uL (1.5-6.6); NEUTROPHILS % (AUTO) 72.7 %; PLT - PLATELET COUNT 245 10^3/uL (130-450); RED BLOOD COUNT 2.04 10^6/uL (4.70-6.10); RED CELL DISTRIBUTION WIDTH 16.7 % (12.0-15.0); WHITE BLOOD COUNT 7.5 x10^3/uL (4.8-10.8)
[2018-02-20] MEDS ORDERED: LIDO GARGLE 30 ML BOTTLE ONE (13:33)
--- NOTE | 2018-02-20 13:33 | ANESTHESIA ---
Pre-Anesthesia VS, & Labs - Diagnosis gi bleed - Procedure egd Vital Signs: Temp Pulse Resp BP Pulse Ox 36.7 C 50 L 17 96/52 L 93 02/20/18 12:27 02/20/18 12:27 02/20/18 12:27 02/20/18 12:27 02/20/18 12:27 Height 5 ft 9 in Weight (kg) 66.5 kg Body Mass Index 21.6 - NPO >8 hours - Lab Results Current Lab Results: Laboratory Tests 02/20/18 08:21: Blood Type O POSITIVE, Antibody Screen POSITIVE, Antibody Identification Anti-E, Crossmatch See Detail 02/20/18 08:21: Lactic Acid 1.5 02/20/18 07:35: PT 25.4 H, INR 2.3 H, APTT 32.6 02/20/18 07:35: Blood Type Recheck O POSITIVE 02/20/18 07:35: TSH 18.07 H 02/20/18 07:35: Troponin I < 0.04 02/20/18 07:35: Sodium 133 L, Potassium 4.6, Chloride 100 L, Carbon Dioxide 26, Anion Gap 7.0, BUN 58 H, Creatinine 2.0 H, Estimated GFR (MDRD) 39 L, Glucose 14 9 H, Calcium 9.2, Total Bilirubin 1.2 H, AST 147 H, ALT 186 H, Alkaline Phosphatase 83, Total Protein 6.7, Albumin 3.5, Globulin 3.2, Albumin/Globulin Ratio 1.1, Lipase 39 02/20/18 07:35: WBC 9.4, RBC 2.28 L, Hgb 6.8 L*, Hct 21.0 L, MCV 91.9, MCH 29.9, MCHC 32.6, RDW 17.0 H, Plt Count 274, MPV 7.1 L, Neut # (Auto) 6.7 H, Lymph # (Auto) 1.7, [place] # (Auto) 0.8, Eos # (Auto) 0.2, Baso # (Auto) 0.1, Absolute Nucleated RBC 0.06, Nucleated RBC % 0.7, Manual Slide Review Indicated, Platelet Estimate NORMAL (130-450,000), Platelet Morphology NORMAL APPEARANCE, RBC Morph Micro Appear 1+ MICROCYTOSIS Fish Bones: 02/20/18 07:35 02/20/18 07:35 Home Medications and Allergies Home Medications: Ambulatory Orders Amiodarone HCl 200 mg PO QDAC 02/20/18 [place]-3/Dha/Epa/Fish Oil [Fish Oil 1,360 mg Softgel] 1 each PO BIDWM 02/20/18 Potassium Chloride [Klor-Con 10] 10 meq PO QDBREAKFAST 02/20/18 Pravastatin [Pravachol] 40 mg PO QPM 02/20/18 Rivaroxaban [Xarelto] 15 mg PO QDDINNER 02/20/18 Active Medications Sodium Chloride (Normal Saline 0.9%) 1,000 mls @ 85 mls/hr IV .[id number] PIPO Last Admin: 02/20/18 12:50 Dose: 85 mls/hr Pantoprazole Sodium 80 mg/ (Sodium Chloride) 100 mls @ 10 mls/hr IV .Q10H PIPO Non-Formulary Medication (Latanoprost [Xalatan]) 1 drops EACHEYE QPM PIPO Polyethylene Glycol (Miralax) 17 gm PO DAILY PIPO Sodium Chloride (Normal Saline Flush 0.9%) 10 ml IVP PRN PRN PRN Reason: NEEDED PER PROVIDER ORDERS Sodium Chloride (Normal Saline Flush 0.9%) 10 ml IVP 0100,0900,1700 PIPO Aspirin [Adult Low Dose Aspirin EC] 81 mg PO QDBREAKFAST 03/10/17 Benazepril HCl 5 mg PO 1200 03/10/17 Folic Acid 800 mcg PO QDBREAKFAST 03/10/17 Metoprolol Succinate/Hctz [Metoprolol ER-Hctz 50-12.5 mg] 50 mg PO QDDINNER 03/10/17 Cholecalciferol (Vitamin D3) [Vitamin D3] 2,000 unit PO QDDINNER 03/11/17 Cyanocobalamin (Vitamin B-12) [Vitamin B-12 (500 mcg sublingual)] 500 mcg SL QDBREAKFAST 03/11/17 Latanoprost [Xalatan] 1 drops EACHEYE QPM 03/11/17 Magnesium Oxide [Mag Ox] 400 mg PO QDDINNER 03/11/17 Pyridoxine HCl [Vitamin B-6] 100 mg PO QDBREAKFAST 03/11/17 Omeprazole 20 mg PO QDAC 07/26/17 Torsemide 30 mg PO QDAC 07/26/17 methIMAzole [Methimazole] 5 mg PO Q2D@1000 07/26/17 Amiodarone HCl 200 mg PO QDAC 02/20/18 [place]-3/Dha/Epa/Fish Oil [Fish Oil 1,360 mg Softgel] 1 each PO BIDWM 02/20/18 Potassium Chloride [Klor-Con 10] 10 meq PO QDBREAKFAST 02/20/18 Pravastatin [Pravachol] 40 mg PO QPM 02/20/18 Rivaroxaban [Xarelto] 15 mg PO QDDINNER 02/20/18 Allergies/Adverse Reactions: Allergies Allergy/AdvReac Type Severity Reaction Status Date / Time codeine AdvReac Emesis Verified 02/20/18 07:48 Anes History & Medical History - Anesthetic History Anesthesia Complications: reports: No previous complications Family history of Anesthesia Complications: Denies Family history of Malignant Hyperthermia: Denies - Medical History Cardiovascular: reports: Congestive heart failure (from ischemic cardiomyopathy. Dr. Boyd describes an EF of 15%. First hospitalization for heart failure 1988 at , second was 08/17/08 at [facility] in [place]. This will be his third. ), Coronary artery disease (First [place] was ~1972 followed by ACB in [facility], in [place], [place]. He had his chest opened 3 times because of bleeding postop. Second ACB was 1986 at [place], [place]. He then had heart failure while visiting [facility] and was air lifted to [facility] with 3rd open heart surgey in 1988.), Peripheral Vascular Disease (with artery bypass both legs (2 separate surgeries) [place], [place] 1989's), Arrhythmia (Vfib with low EF and defibrillator implant 07/14/08. Cardiac Ablation [facility] 01/03/11. Syncope with vfib 2011 and adjusted 08/16/11 and 08/31/11. Repeat episodes of Vfib 04/2015, 05/2015 and meds adjusted and K supplemented. then had 4 more times during the month of 06/2015 in [place] and [place]. Syncope in [facility] and admitted to [facility] 07/06/15 with K and Mg supplemented. Had 5th episode that month 07/08/15. Released from hospital 07/09/15 after new battery implant and 6th episode in the car on the way home. Since then no further episodes. ) Pulmonary: reports: None Gastrointestinal: reports: GERD, Ulcers (gastric and seen on EGD but never bled. ), Hiatal hernia, Other (presbyesopahgus with food bolus stuck and removed via EGD 2013 at [facility], [place], [place]) Urinary: reports: Benign prostate hypertrophy (with UTI 10/02/10) Neuro: reports: None Musculoskeletal: reports: Chronic back pain (lower thoracic and upper lumbar for years off and on. no change. ) Endocrine/Autoimmune: reports: None Blood Disorders: reports: None Skin: reports: None Smoking Status: Former smoker Other Past Medical History: Cataract. Meningioma - Surgical History General: Appendectomy (after exploratory lap in 1959's), Colonoscopy (s), EGD ( for ulcer disease), Other (ventral hernia repair at [facility]) Eyes Ears Nose Throat (EENT): Other (Gum surgery with 7 teeth removed May and June 2010. Had remaining teeth pulled with dentures 09/2013. ) Cardiothoracic: Other Orthopedic: Other Exam General: Alert Dental: Dentures full Upper, Dentures full Lower Mouth Openin Fingerbreadth Neck Mobility: Normal Mallampati classification: II Thyromental Distance: greater than 6 cm Respiratory: No respiratory distress Cardiovascular: Normal S1, Normal S2 Plan Anesthesia Type: MAC Consent for Procedure(s) Verified and Reviewed: Yes Code Status: Attempt Resuscitation ASA classification: 3-Severe systemic disease Is this case an emergency?: No
[2018-02-20 13:34] LABS: HGB - HEMOGLOBIN 6.1 g/dL (14.0-18.0)
[2018-02-20] MEDS ORDERED: LIDO GARGLE 30 ML BOTTLE PO ONE (13:56)
[2018-02-20] MEDS ORDERED: EPINEPHrine 1 MG/ML AMP ONE (13:57)
[2018-02-20] MEDS ORDERED: LACTATED RINGERS 1,000 ML IV ONE (13:57)
[2018-02-20] MEDS ORDERED: KETAMINE 500 MG/10 ML VIAL IVP ONE (14:10)
[2018-02-20] MEDS: MAGNESIUM OXIDE 400 MG TABLET PO SCH (16:23)
[2018-02-20] MEDS: RIVAROXABAN 15 MG TABLET PO SCH (16:23)
[2018-02-20] MEDS: AMIODARONE 200 MG TABLET PO SCH (16:23)
[2018-02-20] MEDS: METOPROLOL SUCCINATE 50 MG TABLET PO SCH (16:23)
[2018-02-20] MEDS: SODIUM CHLORIDE FLUSH 0.9% 10 ML SYRINGE IVP SCH (16:24)
[2018-02-20] MEDS: PANTOPRAZOLE 80 MG in SODIUM CHLORIDE 0.9% 100ML 100 ML IV SCH (17:42)
[2018-02-20] MEDS ORDERED: MORPHINE 10 MG/ML VIAL IVP SCH (19:15)
[2018-02-20] MEDS: MAG HYDROX/AL HYDROX/SIMETH 30 ML UDC PO PRN (19:36)
[2018-02-20] MEDS ORDERED: ONDANSETRON 4 MG/2 ML VIAL IVP PRN (20:42)
[2018-02-20] MEDS ORDERED: PRAVASTATIN 40 MG TABLET PO SCH (21:00)
[2018-02-20] MEDS: LATANOPROST EACHEYE SCH (21:19)
[2018-02-21 00:10] LABS: BASOPHILS % (AUTO) 0.5 %; EOSINOPHILS # (AUTO) 0.1 10^3/uL (0.0-0.7); EOSINOPHILS % (AUTO) 1.5 %; HGB - HEMOGLOBIN 7.9 g/dL (14.0-18.0); LYMPHOCYTES # (AUTO) 1.1 10^3/uL (1.5-3.5); LYMPHOCYTES % (AUTO) 13.4 %; MEAN CORPUSCULAR HGB CONC 33.1 g/dL (32.0-36.0); MEAN CORPUSCULAR VOLUME 90.5 fL (80.0-94.0); MEAN PLATELET VOLUME 6.9 fL (7.4-11.4); MONOCYTES # (AUTO) 0.7 10^3/uL (0.0-1.0); MONOCYTES % (AUTO) 8.9 %; NEUTROPHILS # (AUTO) 6.4 10^3/uL (1.5-6.6); NEUTROPHILS % (AUTO) 75.7 %; PLT - PLATELET COUNT 234 10^3/uL (130-450); RED BLOOD COUNT 2.65 10^6/uL (4.70-6.10); RED CELL DISTRIBUTION WIDTH 16.3 % (12.0-15.0); WHITE BLOOD COUNT 8.4 x10^3/uL (4.8-10.8)
[2018-02-21] MEDS: SODIUM CHLORIDE FLUSH 0.9% 10 ML SYRINGE IVP SCH ×3 (00:56→17:12)
[2018-02-21] MEDS: PANTOPRAZOLE 80 MG in SODIUM CHLORIDE 0.9% 100ML 100 ML IV SCH ×2 (02:55→12:56)
--- NOTE | 2018-02-21 03:45 | Ultrasound Report ---
Reason: abnormal LFT Procedure Date: 02/21/2018 Accession Number: [id number] / [id number] Procedure: US - Abdomen Complete CPT Code: FULL RESULT: EXAM: ABDOMEN ULTRASOUND EXAM DATE: 02/21/2018 01:54 AM. CLINICAL HISTORY: Abnormal LFT. COMPARISON: ABDOMEN/PELVIS W/O 02/20/2018 7:50 AM. TECHNIQUE: Real-time scanning was performed with static images obtained. FINDINGS: Liver: The liver demonstrates increased echogenicity. It measures 17.9 cm. No focal lesion or intrahepatic biliary dilatation. Main portal vein flow: Hepatopetal. Gallbladder: The gallbladder wall is thickened, measuring 7 mm, with pericholecystic fluid, suggestive of acalculous cholecystitis. No cholelithiasis is identified. Biliary System: Common bile duct measures 5 mm. No intrahepatic or extrahepatic ductal dilatation. Pancreas: Visualized portion is unremarkable. Kidneys: Right: 9.6 cm longitudinally. Normal. No contour-deforming mass, stones, or hydronephrosis. Left: 10.2 cm longitudinally. Cortical cyst. No hydronephrosis or solid renal mass. Spleen: 11.4 cm. Normal in size and echotexture. Aorta and Inferior Vena Cava: Distal abdominal aortic aneurysm, seen on CT. Other: None. IMPRESSION: Gallbladder wall thickening, with pericholecystic fluid, suggestive of acalculous cholecystitis. No biliary dilatation. Echogenic liver. RADIA
[2018-02-21 06:00] LABS: ALBUMIN 3.2 g/dL (3.2-5.5); ALBUMIN/GLOBULIN RATIO 1.1 (1.0-2.2); BILIRUBIN,TOTAL 1.3 mg/dL (0.2-1.0); CALCIUM 8.3 mg/dL (8.5-10.3); CREATININE 2.2 mg/dL (0.6-1.2); TOTAL PROTEIN 6.1 g/dL (6.7-8.2)
[2018-02-21] MEDS: TORSEMIDE 20 MG TABLET PO SCH (07:12)
[2018-02-21 07:24] LABS: BASOPHILS % (AUTO) 0.4 %; EOSINOPHILS # (AUTO) 0.2 10^3/uL (0.0-0.7); HGB - HEMOGLOBIN 8.2 g/dL (14.0-18.0); LYMPHOCYTES # (AUTO) 1.2 10^3/uL (1.5-3.5); LYMPHOCYTES % (AUTO) 14.4 %; MEAN CORPUSCULAR HEMOGLOBIN 29.4 pg (27.0-31.0); MEAN PLATELET VOLUME 7.1 fL (7.4-11.4); MONOCYTES # (AUTO) 0.8 10^3/uL (0.0-1.0); MONOCYTES % (AUTO) 10.4 %; NEUTROPHILS # (AUTO) 5.8 10^3/uL (1.5-6.6); NEUTROPHILS % (AUTO) 72.8 %; PLT - PLATELET COUNT 240 10^3/uL (130-450); RED BLOOD COUNT 2.78 10^6/uL (4.70-6.10); RED CELL DISTRIBUTION WIDTH 16.4 % (12.0-15.0)
[2018-02-21] MEDS: SODIUM CHLORIDE 0.9% 1,000 ML IV SCH ×2 (07:32→08:51)
[2018-02-21 07:37] LABS: MEAN RETIC VALUE 101.9; RED BLOOD COUNT 2.68 10^6/uL (4.70-6.10)
[2018-02-21 08:11] LABS: % IRON SATURATION 3 % (20-50); IRON 11 ug/dL (45-182); TOTAL IRON BINDING CAPACITY 382 ug/dL (250-450); TRANSFERRIN 273 mg/dL (180-329)
[2018-02-21 08:26] LABS: FERRITIN 29.4 ng/mL (23.9-336.2)
[2018-02-21] MEDS: PYRIDOXINE 100 MG TABLET PO SCH (09:46)
[2018-02-21] MEDS: POTASSIUM CHLORIDE 10 MEQ CAPSULE PO SCH (09:46)
[2018-02-21] MEDS: AMIODARONE 200 MG TABLET PO SCH (09:46)
[2018-02-21] MEDS: OMEGA-3 ACID ETHYL ESTERS 1 GM CAPSULE PO SCH ×2 (09:46→17:11)
[2018-02-21] MEDS: POLYETHYLENE GLYCOL 3350 17 GM PACKET PO SCH (09:49)
[2018-02-21] MEDS: MAG HYDROX/AL HYDROX/SIMETH 30 ML UDC PO PRN ×2 (10:45→22:21)
[2018-02-21 12:18] LABS: HEPATITIS A IGM NON-REACTIVE (NON-REACTIVE); HEPATITIS B CORE ANTIBODY IGM NON-REACTIVE (NON-REACTIVE); HEPATITIS B SURFACE ANTIGEN NON-REACTIVE (NON-REACTIVE); HEPATITIS C ANTIBODY NON-REACTIVE (NON-REACTIVE)
--- NOTE | 2018-02-21 14:06 | PROVIDER PROGRESS NOTE ---
Subjective - Prog Note Date Prog Note Date: 02/21/18 Prog Note Time: 14:03 - Subjective Pt reports feeling: Worse Subjective: We had admitted him because he was symptomatically anemic. [place] to be mildly hypotensive, dehydrated, hypovolemic from anemia. He was fecal occult blood positive and the working diagnosis was that of slow GI bleed or slow chronic blood loss resulting in anemia. He is blood work shows him to have severe iron deficiency anemia. But this gentleman also appears to have anemia of chronic disease from chronic kidney disease. Even with blood transfusion and a slow gentle hydration, his creatinine worsened overnight. He is a liver function studies also worsened overnight. Now when he tries to eat or drink anything he has diffuse abdominal aching, increasing nausea, and he is miserable. He is getting sleepier. Current Medications - Current Medications Current Medications: Active Medications Al Hydroxide/Mg Hydroxide (Mylanta Plus) 30 ml PO Q4HR PRN PRN Reason: INDIGESTION Last Admin: 02/21/18 10:45 Dose: 30 ml Amiodarone HCl (Pacerone) 100 mg PO QDAC [facility] Sodium Chloride (Normal Saline 0.9%) 1,000 mls @ 85 mls/hr IV .[id number] [facility] Last Admin: 02/21/18 08:51 Dose: 85 mls/hr Magnesium Oxide (Mag Ox) 400 mg PO QDDINNER [facility] Last Admin: 02/20/18 16:23 Dose: 400 mg Methimazole (Tapazole) 5 mg PO Q2D@1000 [facility] Metoprolol Succinate (Toprol Xl) 50 mg PO QDDINNER [facility] Last Admin: 02/20/18 16:23 Dose: 50 mg Non-Formulary Medication (Latanoprost [Xalatan]) 1 drops EACHEYE QPM [facility] Last Admin: 02/20/18 21:19 Dose: Not Given [id number] Ethyl Esters (Lovaza) 1 gm PO BIDWM [facility] Last Admin: 02/21/18 09:46 Dose: 1 gm Ondansetron HCl (Zofran Inj) 4 mg IVP Q4HR PRN PRN Reason: Nausea / Vomiting Last Admin: 02/20/18 20:53 Dose: 4 mg Polyethylene Glycol (Miralax) 17 gm PO DAILY [facility] Last Admin: 02/21/18 09:49 Dose: 17 gm Potassium Chloride (Micro-K) 10 meq PO DAILYWM [facility] Last Admin: 02/21/18 09:46 Dose: 10 meq Pyridoxine HCl (Vitamin B-6) 100 mg PO QDBREAKFAST [facility] Last Admin: 02/21/18 09:46 Dose: 100 mg Rivaroxaban (Xarelto) 15 mg PO QDDINNER [facility] Last Admin: 02/20/18 16:23 Dose: 15 mg Sodium Chloride (Normal Saline Flush 0.9%) 10 ml IVP PRN PRN PRN Reason: NEEDED PER PROVIDER ORDERS Last Admin: 02/20/18 20:53 Dose: 10 ml Sodium Chloride (Normal Saline Flush 0.9%) 10 ml IVP 0100,0900,1700 [facility] Last Admin: 02/21/18 07:33 Dose: Not Given Torsemide (Torsemide) 30 mg PO QDAC [facility] Last Admin: 02/21/18 07:12 Dose: 30 mg Aspirin [Adult Low Dose Aspirin EC] 81 mg PO QDBREAKFAST 03/10/17 Benazepril HCl 5 mg PO 1200 03/10/17 Folic Acid 800 mcg PO QDBREAKFAST 03/10/17 Cholecalciferol (Vitamin D3) [Vitamin D3] 2,000 unit PO QDDINNER 03/11/17 Cyanocobalamin (Vitamin B-12) [Vitamin B-12 (500 mcg sublingual)] 500 mcg SL QDBREAKFAST 03/11/17 Latanoprost [Xalatan] 1 drops EACHEYE QPM 03/11/17 Magnesium Oxide [Mag Ox] 400 mg PO QDDINNER 03/11/17 Pyridoxine HCl [Vitamin B-6] 100 mg PO QDBREAKFAST 03/11/17 Omeprazole 20 mg PO QDAC 07/26/17 Torsemide 30 mg PO QDAC 07/26/17 methIMAzole [Methimazole] 5 mg PO Q2D@1000 07/26/17 Amiodarone HCl 200 mg PO QDAC 02/20/18 Metoprolol Succinate 50 mg PO QDDINNER 02/20/18 [place]-3/Dha/Epa/Fish Oil [Fish Oil 1,360 mg Softgel] 1 each PO BIDWM 02/20/18 Potassium Chloride [Klor-Con 10] 10 meq PO QDBREAKFAST 02/20/18 Pravastatin [Pravachol] 40 mg PO QPM 12/11/18 Rivaroxaban [Xarelto] 15 mg PO QDDINNER 02/20/18 Objective - Vital Signs/Intake & Output Reviewed Vital Signs: Yes Vital Signs: Vital Signs x48h Temp Pulse Resp BP Pulse Ox 02/21/18 08:00 36.8 C 70 18 90/56 L 98 Intake & Output: Intake & Output 02/18/18 02/19/18 02/20/18 02/21/18 23:59 23:59 23:59 23:59 Intake Total 0421.060 9125.75 Output Total 400 675 Balance 718.649 5116.75 - Objective General Appearance: positive: No acute distress, Mild distress (from nausea and can't think straight, he has become more slow to respond from yesterday to today) Eyes Bilateral: positive: PERRL ENT: positive: Pharynx nml, Other (dentures in today). negative: Pharyngeal erythema Neck: positive: No JVD. negative: Stiff neck, Carotid bruit Respiratory: positive: Chest non-tender, No respiratory distress. negative: Wheezes, Rales, Rhonchi Cardiovascular: positive: Regular rate & rhythm, Systolic murmur. negative: Gallop/S4, Friction rub Abdomen: positive: Nml bowel sounds, Tenderness (mild in epigastrium and around umbilicus, but not ruq), Other (mild gaseous distension). negative: Guarding, Rebound - Lab Results Fish Bones: 02/21/18 07:17 02/21/18 05:40 Other Labs: Lab Results x24hrs 02/21/18 02/21/18 02/21/18 Range/Units 07:17 05:49 05:49 WBC 8.0 (4.8-10.8) x10^3/uL RBC 2.78 L (4.70-6.10) 10^6/uL Hgb 8.2 L (14.0-18.0) g/dL Hct 25.6 L (42.0-52.0) % MCV 92.0 (80.0-94.0) fL MCH 29.4 (27.0-31.0) pg MCHC 32.0 (32.0-36.0) g/dL RDW 16.4 H (12.0-15.0) % Plt Count 240 (130-450) 10^3/uL MPV 7.1 L (7.4-11.4) fL Reticulocyte % (Auto) (0.5-2.3) % Neut # (Auto) 5.8 (1.5-6.6) 10^3/uL Lymph # (Auto) 1.2 L (1.5-3.5) 10^3/uL [place] # (Auto) 0.8 (0.0-1.0) 10^3/uL Eos # (Auto) 0.2 (0.0-0.7) 10^3/uL Baso # (Auto) 0.0 (0.0-0.1) 10^3/uL Absolute Nucleated RBC 0.09 x10^3/uL Nucleated RBC % 1.1 /100WBC Absolute Retic (0.020-0.110) 10^6/uL Sodium (135-145) mmol/L Potassium (3.5-5.0) mmol/L Chloride (101-111) mmol/L Carbon Dioxide (21-32) mmol/L Anion Gap (6-13) BUN (6-20) mg/dL Creatinine (0.6-1.2) mg/dL Estimated GFR (MDRD) (>89) Glucose (70-100) mg/dL Calcium (8.5-10.3) mg/dL Iron (45-182) ug/dL TIBC (250-450) ug/dL % Saturation (20-50) % Transferrin (180-329) mg/dL Ferritin 29.4 (23.9-336.2) ng/mL Total Bilirubin (0.2-1.0) mg/dL AST (10-42) IU/L ALT (10-60) IU/L Alkaline Phosphatase (42-121) IU/L Lactate Dehydrogenase 250 H (91-225) IU/L Troponin I (<0.49) ng/mL Total Protein (6.7-8.2) g/dL Albumin (3.2-5.5) g/dL Globulin (2.1-4.2) g/dL Albumin/Globulin Ratio (1.0-2.2) Vitamin B12 3712 H (180-914) pg/mL Hepatitis A IgM Ab (NON-REACTIVE) Hep Bs Antigen (NON-REACTIVE) Hep B Core IgM Ab (NON-REACTIVE) Hepatitis C Antibody (NON-REACTIVE) Hep C Ab Signal/Cutoff (<1.00) Blood Type Antibody Screen Antibody Identification Crossmatch 02/21/18 02/21/18 02/21/18 Range/Units 05:49 05:49 05:40 WBC (4.8-10.8) x10^3/uL RBC 2.68 L (4.70-6.10) 10^6/uL Hgb (14.0-18.0) g/dL Hct (42.0-52.0) % MCV (80.0-94.0) fL MCH (27.0-31.0) pg MCHC (32.0-36.0) g/dL RDW (12.0-15.0) % Plt Count (130-450) 10^3/uL MPV (7.4-11.4) fL Reticulocyte % (Auto) 4.26 H (0.5-2.3) % Neut # (Auto) (1.5-6.6) 10^3/uL Lymph # (Auto) (1.5-3.5) 10^3/uL [place] # (Auto) (0.0-1.0) 10^3/uL Eos # (Auto) (0.0-0.7) 10^3/uL Baso # (Auto) (0.0-0.1) 10^3/uL Absolute Nucleated RBC x10^3/uL Nucleated RBC % /100WBC Absolute Retic 0.114 H (0.020-0.110) 10^6/uL Sodium (135-145) mmol/L Potassium (3.5-5.0) mmol/L Chloride (101-111) mmol/L Carbon Dioxide (21-32) mmol/L Anion Gap (6-13) BUN (6-20) mg/dL Creatinine (0.6-1.2) mg/dL Estimated GFR (MDRD) (>89) Glucose (70-100) mg/dL Calcium (8.5-10.3) mg/dL Iron 11 L (45-182) ug/dL TIBC 382 (250-450) ug/dL % Saturation 3 L (20-50) % Transferrin 273 (180-329) mg/dL Ferritin (23.9-336.2) ng/mL Total Bilirubin (0.2-1.0) mg/dL AST (10-42) IU/L ALT (10-60) IU/L Alkaline Phosphatase (42-121) IU/L Lactate Dehydrogenase (91-225) IU/L Troponin I < 0.04 (<0.49) ng/mL Total Protein (6.7-8.2) g/dL Albumin (3.2-5.5) g/dL Globulin (2.1-4.2) g/dL Albumin/Globulin Ratio (1.0-2.2) Vitamin B12 (180-914) pg/mL Hepatitis A IgM Ab (NON-REACTIVE) Hep Bs Antigen (NON-REACTIVE) Hep B Core IgM Ab (NON-REACTIVE) Hepatitis C Antibody (NON-REACTIVE) Hep C Ab Signal/Cutoff (<1.00) Blood Type Antibody Screen Antibody Identification Crossmatch 02/21/18 02/20/18 02/20/18 Range/Units 05:40 23:55 08:21 WBC 8.4 (4.8-10.8) x10^3/uL RBC 2.65 L (4.70-6.10) 10^6/uL Hgb 7.9 L (14.0-18.0) g/dL Hct 24.0 L (42.0-52.0) % MCV 90.5 (80.0-94.0) fL MCH 30.0 (27.0-31.0) pg MCHC 33.1 (32.0-36.0) g/dL RDW 16.3 H (12.0-15.0) % Plt Count 234 (130-450) 10^3/uL MPV 6.9 L (7.4-11.4) fL Reticulocyte % (Auto) (0.5-2.3) % Neut # (Auto) 6.4 (1.5-6.6) 10^3/uL Lymph # (Auto) 1.1 L (1.5-3.5) 10^3/uL [place] # (Auto) 0.7 (0.0-1.0) 10^3/uL Eos # (Auto) 0.1 (0.0-0.7) 10^3/uL Baso # (Auto) 0.0 (0.0-0.1) 10^3/uL Absolute Nucleated RBC 0.09 x10^3/uL Nucleated RBC % 1.0 /100WBC Absolute Retic (0.020-0.110) 10^6/uL Sodium 132 L (135-145) mmol/L Potassium 4.7 (3.5-5.0) mmol/L Chloride 103 (101-111) mmol/L Carbon Dioxide 24 (21-32) mmol/L Anion Gap 5.0 L (6-13) BUN 60 H (6-20) mg/dL Creatinine 2.2 H (0.6-1.2) mg/dL Estimated GFR (MDRD) 35 L (>89) Glucose 156 H (70-100) mg/dL Calcium 8.3 L (8.5-10.3) mg/dL Iron (45-182) ug/dL TIBC (250-450) ug/dL % Saturation (20-50) % Transferrin (180-329) mg/dL Ferritin (23.9-336.2) ng/mL Total Bilirubin 1.3 H (0.2-1.0) mg/dL AST 160 H (10-42) IU/L ALT 219 H (10-60) IU/L Alkaline Phosphatase 101 (42-121) IU/L Lactate Dehydrogenase (91-225) IU/L Troponin I (<0.49) ng/mL Total Protein 6.1 L (6.7-8.2) g/dL Albumin 3.2 (3.2-5.5) g/dL Globulin 2.9 (2.1-4.2) g/dL Albumin/Globulin Ratio 1.1 (1.0-2.2) Vitamin B12 (180-914) pg/mL Hepatitis A IgM Ab (NON-REACTIVE) Hep Bs Antigen (NON-REACTIVE) Hep B Core IgM Ab (NON-REACTIVE) Hepatitis C Antibody (NON-REACTIVE) Hep C Ab Signal/Cutoff (<1.00) Blood Type O POSITIVE Antibody Screen POSITIVE Antibody Identification Anti-E Crossmatch See Detail 02/20/18 Range/Units 07:35 WBC (4.8-10.8) x10^3/uL RBC (4.70-6.10) 10^6/uL Hgb (14.0-18.0) g/dL Hct (42.0-52.0) % MCV (80.0-94.0) fL MCH (27.0-31.0) pg MCHC (32.0-36.0) g/dL RDW (12.0-15.0) % Plt Count (130-450) 10^3/uL MPV (7.4-11.4) fL Reticulocyte % (Auto) (0.5-2.3) % Neut # (Auto) (1.5-6.6) 10^3/uL Lymph # (Auto) (1.5-3.5) 10^3/uL [place] # (Auto) (0.0-1.0) 10^3/uL Eos # (Auto) (0.0-0.7) 10^3/uL Baso # (Auto) (0.0-0.1) 10^3/uL Absolute Nucleated RBC x10^3/uL Nucleated RBC % /100WBC Absolute Retic (0.020-0.110) 10^6/uL Sodium (135-145) mmol/L Potassium (3.5-5.0) mmol/L Chloride (101-111) mmol/L Carbon Dioxide (21-32) mmol/L Anion Gap (6-13) BUN (6-20) mg/dL Creatinine (0.6-1.2) mg/dL Estimated GFR (MDRD) (>89) Glucose (70-100) mg/dL Calcium (8.5-10.3) mg/dL Iron (45-182) ug/dL TIBC (250-450) ug/dL % Saturation (20-50) % Transferrin (180-329) mg/dL Ferritin (23.9-336.2) ng/mL Total Bilirubin (0.2-1.0) mg/dL AST (10-42) IU/L ALT (10-60) IU/L Alkaline Phosphatase (42-121) IU/L Lactate Dehydrogenase (91-225) IU/L Troponin I (<0.49) ng/mL Total Protein (6.7-8.2) g/dL Albumin (3.2-5.5) g/dL Globulin (2.1-4.2) g/dL Albumin/Globulin Ratio (1.0-2.2) Vitamin B12 (180-914) pg/mL Hepatitis A IgM Ab NON-REACTIVE (NON-REACTIVE) Hep Bs Antigen NON-REACTIVE (NON-REACTIVE) Hep B Core IgM Ab NON-REACTIVE (NON-REACTIVE) Hepatitis C Antibody NON-REACTIVE (NON-REACTIVE) Hep C Ab Signal/Cutoff 0.00 (<1.00) Blood Type Antibody Screen Antibody Identification Crossmatch Assessment/Plan - Problem List (1) Fatigue Impression: Now that I have spoken to his specialty sales consultant, has had his EGD, the overall picture is that of a gradually decreasing mobility, decreasing cardiovascular endurance, worsening thyroid disease, worsening chronic anemia, end-stage cardiomyopathy, worsening kidney disease and not much room to maneuver with improving all of this. He is received 2 units of packed cells for his anemia. He has had a good response with a rise in his hemoglobin. Stable blood pressure. No worsening of congestive heart failure. However, he seems to be worse today with regards to fatigue, nausea, and psychomotor slowing. Please see advanced care planning discussion under separate dictation In an effort to maximize symptom management And to address rising creatinine and liver function studies, will change status to inpatient status. Qualifiers: Fatigue type: other Qualified Code(s): R53.83 - Other fatigue (2) Chronic blood loss anemia Impression: Anemia is a combination of anemia of chronic disease, as well as iron deficiency anemia. EGD is negative for ulcer. At this point, with his overall prognosis, I would not recommend a colonoscopy be done. Plan: Start ferrous gluconate daily Start B12 sublingual daily Continue to work on his thyroid hormone levels (3) Acute renal failure superimposed on stage 3 chronic kidney disease Impression: Creatinine was 2 and now 2.3 today in spite of IV fluids, and 2 units of packed cells. This is a gentleman who has an ejection fraction of 15%. There is some element of prerenal azotemia. Blood pressure is been consistently 90-98 systolic with no sudden drops. He is now received adequate intravascular supplementation with his blood and IV fluids. In spite of this his creatinine i s worsened. Urine output has remained stable. Plan: Continue 85 cc an hour of normal saline. But again, I am very cognizant that I could put him into right-sided heart failure because of high pulmonary pressures as well as left-sided heart failure. We will stop after 1 L. Recheck in a.m. Qualifiers: Acute renal failure type: unspecified Qualified Code(s): N17.9 - Acute kidney failure, unspecified; N18.3 - Chronic kidney disease, stage 3 (moderate) (4) Chronic systolic congestive heart failure, NYHA class 3 Impression: This is resulted in ejection fraction of 15%, and V. fib/V. tach. He has an AICD in place that has gone off twice in the last year. He has had medications adjusted, mainly amiodarone. He is not a candidate for sotalol. Dr. Delatorre was very [id number] and states that she had an end-of-life conversation with the patient and his in December. in asking the surprise question "would you be surprised if the patient were alive in 1 year", she would be surprised and feels he may not even have a life expectancy of 6months. While she recognizes that his amiodarone is giving him toxicity including his thyroid and his liver, he cannot use sotalol. If we stop the amiodarone completely this would put him at risk for further arrhythmia. The most she would do is recommend a reduction of amiodarone to 100 mg. She is transitioning to palliative care cardiology. Her last week in active cardiology practice is this month. She will be off the month of March. She then starts the palliative care cardiology service with [facility] in April and she anticipates seeing Mr. Garcia then. (5) Hyperglycemia Impression: Repeat glucose 156. Check A1c. (6) Hypothyroidism (acquired) Impression: Iatrogenic, due to methimazole. That in turn is being used to suppress them because of amiodarone toxicity and hyperthyroidism. We are continuing the same dose that he came in on for methimazole. 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 The last echocardiogram this gentleman had documents not only end-stage cardiomyopathy with an ejection fraction of 15% but high pulmonary pressures. He is not a candidate for other medications. Decrease dose to 100 mg a day. Every discussed this with his and patient. (8) Meningioma, cerebral Impression: In July 2017 he had a fall. Because he was on Coumadin, and it was associated with syncope he had a CT of the head. The syncope was related to the fact that he had V. fib and had his AICD go off. Nevertheless, the CT scan then showed a large left pre-pontine mass with potential cavernous sinus extension measuring 4.5 x 3.0 x 2.9 cm. His AICD was a contraindication for MRI. No hemorrhage. A contrast CT was read as a large left para cavernous extrinsic mass consistent with large meningioma spreading along the left greater wing of the sphenoid, left posterior tentorium, partially effacing the left pre-pontine cistern. Left CP angle, also effacing the left temporal lobe, occupying a portion of the left middle cranial fossa. There was significant focal vasogenic edema within the left temporal lobe. He had a 5.6 mm left to right midline shift with moderate ventricular enlargement consistent with at least partial ventricular entrapment. No herniation. He has not had any imaging done since then. But he has had an opinion with neurosurgery. He is not an operative candidate. (9) Aneurysm of infrarenal abdominal aorta Impression: On CT scan done for his abdominal pain and liver enzymes, he does have an infrarenal abdominal aortic aneurysm. Again, most likely, he is not a surgical candidate nor in interventional radiology candidate.
[2018-02-21] MEDS: RIVAROXABAN 15 MG TABLET PO SCH (17:11)
[2018-02-21] MEDS: METOPROLOL SUCCINATE 50 MG TABLET PO SCH (17:11)
[2018-02-21] MEDS: MAGNESIUM OXIDE 400 MG TABLET PO SCH (17:11)
[2018-02-21] MEDS: LATANOPROST EACHEYE SCH (21:02)
[2018-02-21] MEDS ORDERED: ZOLPIDEM 5 MG TABLET PO PRN (23:13)
--- NOTE | 2018-02-22 00:18 | CONSULTATION NOTE ---
Referring Provider Name of Referring Provider:: Dr. Nella Alexis Consult Date: 02/20/18 Chief Complaint - Chief Complaint Chief Complaint: Anemia suspected UGI bleed - history of PUD - on aspirin History of Present Illness - Admitted From Admitted From:: [facility] ED - History Obtained From Records Reviewed: Yes History obtained from: Patient, chart and Dr. Alexis Exam Limitations: None - History of Present Illness HPI Comment/Other: Dr. Nella Alexis L/see this 60 asked that I see this exceedingly pleasant 77-year-old male in order to perform an EGD for presumed upper GI bleeding as a source of his anemia. The patient has had a history of peptic ulcer disease in the past. He is on aspirin. When he came to [facility]'s emergency department he is found to be hypotensive. As part of this workup he was found to be profoundly anemic. A very long story short, he has become progressively more deconditioned and tired over years but he has an extensive cardiac history as well as thyroid history as well as multiple other comorbidities that are extensively detailed in Dr. Alexis's history and physical and I will not restate them now. I cannot stress how detailed Dr. Alexis's history and physical is and for details I would turn any reader of this consult to Dr. Alexis's history and physical. History - Past Medical History Cardiovascular: reports: Congestive heart failure (from ischemic cardiomyopathy. Dr. Boyd describes an EF of 15%. First hospitalization for heart failure 1988 at , second was 08/17/08 at [place] in [place]. This will be his third. ), Coronary artery disease (First CO was ~1972 followed by ACB in [facility], in [place], [place]. He had his chest opened 3 times because of bleeding postop. Second ACB was 1986 at [place], [place]. He then had heart failure while visiting [facility] and was air lifted to [facility] with 3rd open heart surgey in 1988.), Peripheral Vascular Disease (with artery bypass both legs (2 separate surgeries) [place], [place] 1989'), Arrhythmia (Vfib with low EF and defibrillator implant 07/14/08. Cardiac Ablation [facility] 01/03/11. Syncope with vfib 2011 and adjusted 08/16/11 and 08/31/11. Repeat episodes of Vfib 04/2015, 05/2015 and meds adjusted and K supplemented. then had 4 more times during the month of 06/2015 in [place] and [place]. Syncope in [facility] and admitted to [facility] 07/06/15 with K and Mg supplemented. Had 5th episode that month 07/08/15. Released from hospital 07/09/15 after new battery implant and 6th episode in the car on the way home. Since then no further episodes. ) Respiratory: reports: None Neuro: reports: None Endocrine/Autoimmune: reports: None GI: reports: GERD, Ulcers (gastric and seen on EGD but never bled. ), Hiatal hernia, Other (presbyesopahgus with food bolus stuck and removed via EGD [address] [facility], [place], [place]) : reports: Benign prostate hypertrophy (with UTI 10/02/10) HEENT: reports: Chronic vision loss, Glaucoma, Other (dentures) Psych: reports: None Musculoskeletal: reports: Chronic back pain (lower thoracic and upper lumbar for years off and on. no change. ) Derm: reports: None MRSA Hx?: No Other Past Medical History: Cataract. Meningioma - Past Surgical History General: reports: Appendectomy (after exploratory lap in 1959's), Colonoscopy (), EGD ( for ulcer disease), Other (ventral hernia repair at [facility]) Ortho: reports: Other Cardiovascular: reports: Other HEENT: reports: Other (Gum surgery with 7 teeth removed May and June 2010. Had remaining teeth pulled with dentures 09/2013. ) - Family & Social History Social History Notes: He was born in [facility], and moved to [place] for the weather when he was old enough. 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 He was for a short while to 1 woman and had 3 children with her. He was and visiting his mother and sister in the [facility] area when he met his . She was friends with his siblings and they introduced him to her. They have subsequently been for 48 years. They lived mainly in [facility] and moved up to [facility] after visiting every year. She always wanted to come back to the [facility], always wanted to be closer to her family, and they finally did it permanently in July 2016. He started smoking at the age of 26 and smoked 1-1/2 packs per day. 6 years ago he cut back to 1 cigarette a day and did 1 cigarette a day for 3 years. He quit 3 years ago. He has never had a problem with alcohol abuse or any form of recreational substance abuse. He and his live in their own home. It is single level. It is not completely handicapped accessible yet. But if he needed to be in a wheelchair and shower, the house is beginning for that. - Substance History Use: Uses substance without health or social issues: Tobacco - POLST Patient has POLST: No POLST Status: DNR Meds/Allgy - Home Medications Home Medications: Ambulatory Orders Medication Instructions Recorded Confirmed Aspirin [Adult Low Dose Aspirin EC] 81 mg PO QDBREAKFAST 03/10/17 02/20/18 Benazepril HCl 5 mg PO 1200 03/10/17 02/20/18 Folic Acid 800 mcg PO QDBREAKFAST 03/10/17 02/20/18 Cholecalciferol (Vitamin D3) 2,000 unit PO QDDINNER 03/11/17 02/20/18 [Vitamin D3] Cyanocobalamin (Vitamin B-12) 500 mcg SL QDBREAKFAST 03/11/17 02/20/18 [Vitamin B-12 (500 mcg sublingual)] Latanoprost [Xalatan] 1 drops EACHEYE QPM 03/11/17 02/20/18 Magnesium Oxide [Mag Ox] 400 mg PO QDDINNER 03/11/17 02/20/18 Pyridoxine HCl [Vitamin B-6] 100 mg PO QDBREAKFAST 03/11/17 02/20/18 Omeprazole 20 mg PO QDAC 07/26/17 02/20/18 Torsemide 30 mg PO QDAC 07/26/17 02/20/18 methIMAzole [Methimazole] 5 mg PO Q2D@1000 07/26/17 02/20/18 Amiodarone HCl 200 mg PO QDAC 02/20/18 02/20/18 Metoprolol Succinate 50 mg PO QDDINNER 02/20/18 02/20/18 [place]ank-3/Dha/Epa/Fish Oil [Fish Oil 1 each PO BIDWM 02/20/18 02/20/18 1,360 mg Softgel] Potassium Chloride [Klor-Con 10] 10 meq PO QDBREAKFAST 02/20/18 02/20/18 Pravastatin [Pravachol] 40 mg PO QPM 02/20/18 02/20/18 Rivaroxaban [Xarelto] 15 mg PO QDDINNER 02/20/18 02/20/18 - Allergies Allergies/Adverse Reactions: Allergies Allergy/AdvReac Type Severity Reaction Status Date / Time codeine AdvReac Emesis Verified 02/20/18 07:48 Exam - Vital Signs Reviewed Vital Signs: Yes - Physical Exam General Appearance: positive: No acute distress Eyes Bilateral: positive: No lid inflammation, Conjunctivae nml, No scleral icterus ENT: positive: Dry mucous membranes Neck: positive: Trachea midline Respiratory: positive: Chest non-tender, No respiratory distress, Wheezes (Slight.) Cardiovascular: positive: Tachycardia Abdomen: positive: Non-tender, No organomegaly, Nml bowel sounds, No distention Skin: positive: Pallor (Relative due to his normal skin coloration. Sclera were pale.) Extremities: positive: Non-tender, Nml appearance Neurologic/Psychiatric: positive: Oriented x3 Conclusion/Plan - Diagnosis Diagnosis: Anemia thought to be upper GI in etiology - Plan Plan: Esophagogastroduodenoscopy with possible biopsies and/or polypectomies. Indications, procedure, alternatives (such as barium studies and even no procedure at all) and risks including but not limited to perforation requiring operative repair, bleeding with its risks, and were fully explained to him. Conscious sedation was discussed at length with him as were its risks including but not limited to loss of airway, aspiration, respiratory depression, and not enough relief of pain and anxiety and he indicated that he wished to have conscious sedation for his procedure. I explained that his posterior oropharynx would also be anesthetized for the procedure. I explained that MAC anesthesia is associated with a higher incidence of intestinal perforation. Review of his history does not reveal any significant systemic disease that would contraindicate use of conscious sedation or MAC anesthesia. All questions were fully answered. Verbal and written consent was obtained. The patient in preparation for his esophagogastroduodenoscopy has been n.p.o. 45 minutes of [id number] time spent with the patient the majority of which was spent in discussion Angeline disclaimer: This document was created in part using voice recognition technology. Because of the inherent limitations of the system ([employer]'s [employer] Dictate user manual states that the licensee understands that speech recognition is a statistical process and that recognition errors are inherent in the process), occasional same sounding word substitutions and grammatical errors do occur and persist despite proofreading. Please read this document for context. - Lab Results Lab results reviewed: Yes Fish Bones: 02/21/18 07:17 02/21/18 05:40 - Diagnostic Imaging Results Diagnostic Imaging Results: positive: Final report reviewed - EKG Results EKG Interpreted Independently: No
[2018-02-22] MEDS: SODIUM CHLORIDE FLUSH 0.9% 10 ML SYRINGE IVP SCH ×2 (05:26→08:45)
[2018-02-22 05:41] LABS: ALBUMIN 3.2 g/dL (3.2-5.5); ALBUMIN/GLOBULIN RATIO 1.1 (1.0-2.2); BILIRUBIN,TOTAL 1.8 mg/dL (0.2-1.0); CALCIUM 8.6 mg/dL (8.5-10.3); CREATININE 2.7 mg/dL (0.6-1.2); TOTAL PROTEIN 6.1 g/dL (6.7-8.2)
[2018-02-22 05:53] LABS: BASOPHILS % (AUTO) 0.9 %; LYMPHOCYTES % (AUTO) 13.3 %; MEAN CORPUSCULAR HEMOGLOBIN 29.6 pg (27.0-31.0); MEAN CORPUSCULAR HGB CONC 31.9 g/dL (32.0-36.0); MEAN CORPUSCULAR VOLUME 92.7 fL (80.0-94.0); MEAN PLATELET VOLUME 7.4 fL (7.4-11.4); MONOCYTES % (AUTO) 11.6 %; NEUTROPHILS % (AUTO) 73.2 %; PLT - PLATELET COUNT 244 10^3/uL (130-450); RED BLOOD COUNT 2.71 10^6/uL (4.70-6.10); RED CELL DISTRIBUTION WIDTH 16.8 % (12.0-15.0); WHITE BLOOD COUNT 9.4 x10^3/uL (4.8-10.8)
[2018-02-22 05:56] LABS: ABNORMAL LYMPHS % (MANUAL) 0 %
[2018-02-22 06:15] LABS: BAND NEUTROPHILS % (MANUAL) 6 %; BASOPHILS # (MANUAL) 0.1 10^3/uL (0-0.1); BASOPHILS % (MANUAL) 1 %; EOSINOPHILS # (MANUAL) 0.1 10^3/uL (0-0.7); LYMPHOCYTES % (MANUAL) 11 %; MONOCYTES # (MANUAL) 0.3 10^3/uL (0.0-1.0); NEUTROPHILS # (MANUAL) 7.9 10^3/uL (1.5-6.6); NEUTROPHILS % (MANUAL) 78 %; PLATELET ESTIMATE, MANUAL NORMAL (130-450,000) (NORMAL)
[2018-02-22 06:16] LABS: DIFFERENTIAL COMMENT MANUAL DIFFERENTIAL
[2018-02-22] MEDS ORDERED: AMIODARONE 200 MG TABLET PO SCH (07:00)
[2018-02-22 08:18] VITALS: BP 108/67
[2018-02-22] MEDS: OMEGA-3 ACID ETHYL ESTERS 1 GM CAPSULE PO SCH (08:44)
[2018-02-22] MEDS: POTASSIUM CHLORIDE 10 MEQ CAPSULE PO SCH (08:44)
[2018-02-22] MEDS: PYRIDOXINE 100 MG TABLET PO SCH (08:45)
[2018-02-22] MEDS: TORSEMIDE 20 MG TABLET PO SCH (08:45)
[2018-02-22] MEDS: POLYETHYLENE GLYCOL 3350 17 GM PACKET PO SCH (08:45)
[2018-02-22] MEDS ORDERED: methIMAzole 5 MG TABLET PO SCH (10:00)
--- NOTE | 2018-02-22 11:34 | Discharge Plan ---
Discharge Plan Disposition: Home, Self Care Condition: Fair Prescriptions: Amiodarone HCl 100 mg PO DAILY #30 tablet Diet: Low Sodium Activity Restrictions: Activity as Tolerated Shower Restrictions: No Driving Restrictions: Yes (no driving) Additional Instructions or Follow Up instructions: You were evaluated in the emergency room and then admitted to the hospital because you were unusually tired, fatigued, and more short of breath than usual. You have a long history of 2 bypass surgeries, and an AICD for ventricular fibrillation. The left part of your heart does not pump very well and is rated at 15%. You recently also had your thyroid affected by your amiodarone and are on thyroid suppression medication. You have chronic kidney disease and chronic kidney disease can sometimes give you anemia of chronic disease. In putting all of these together, you have been getting more and more tired. Dr. Delatorre has suggested that it may be time for you to do palliative care and may be transition to hospice care. After evaluating you with this admission, we found that you have a very low blood pressure, and are anemic. An endoscopy was performed and you do not have any bleeding ulcers. You were transfused 2 units of blood. The medicine we used to sedate you for the endoscopy really hung around longer than usual and you were sleepy, confused for over a day. 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 But your are stuck in having to use it because other medicines for your Vetricular Fib cannot be used. Dr. Delatorre has reviewed that. She would like me to lower the dose from 200 mg a day to 100 [address] CT scan done to evaluate your liver also shows that you have an aneurysm of the aorta, below the kidneys. It is 4.5 cm big. It is now time for you to go home. I have written the order for hospice evaluation. They will see you in your home next week. Dr. Delatorre also is transitioning to a palliative cardiology service. She opens up her new clinic in April of next year. She hopes to see you then as 1 of her new patients, but will hopefully also see you in the next couple of weeks and follow-up for this day. Please also see Dr. True Sears to see if you think you are a candidate for vitamins, treatment of the anemia of chronic kidney disease, or adjustment of your medications. No Smoking: If you smoke, Please STOP! Call for help. Follow-up with: True Sears MD [Primary Care Provider] -
--- NOTE | 2018-02-22 18:03 | ADVANCE CARE PLANNING NOTE ---
Advance Care Planning - Date/Time Date: 02/21/18 Time: 10:00 - Purpose of encounter Text: To explore his goals for further treatment and see if he understands his disease processes - Parties in attendance Parties in attendance: , patient, and hospitalist - Decisional capacity Decisional capacity of: Patient is intact. Alert and oriented. Sleepy today after endoscopy - Subjective/Patient's story Subjective/Patient's story: He was born in [facility] and moved to [place] for the weather when he was old enough. 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 He was for short while to one woman and had 3 children with her. He was and visiting his mother and sister in [facility] when he met his second . She was friends with his siblings and they introduced him to her. They have subsequently been for close to 49 years now. They lived in [facility] and moved to [facility] after visiting every year. She always wanted to come back to the [facility], always wanted to be close to her family, and they finally did it permanently in July 2016. He has been losing ground from a mobility perspective strictly from his congestive heart failure. He had his first heart attack with bypass surgery and horrendous complications in the 1970s. He has had 2 more surgeries after that for a total of 3. He ended up having his first congestive heart failure admission in 1988. Currently he is managed by Dr. Baldev Eddy and Dr. Delatorre from the [facility] cardiology clinic. He has end-stage congestive heart failure with an ejection fraction of 15%. Recently his amiodarone started giving him problems and he has been on suppressive therapy with methimazole because of hyperthyroidism. In the overshot it he became severely hypothyroid. In addition he has been developing worse and worse liver enzymes that they attribute to amiodarone toxicity and amiodarone induced cirrhosis. His warehouse associate does not feel he is a candidate for other medications. With her last talk to him in December, she felt it was time to transition to palliative care, possibly hospice. With this admission we have noticed that he has an infrarenal aortic aneurysm. And severe elevation of liver enzymes. And he has a large meningioma that was identified this last year. He stopped driving probably 2 years ago. He just cannot focus. His is also taken over paying the bills for the same reason. [place] used to love [place], collect agates, loves working in his garden. Loves reading. All of those have slowly followed by the way side as he has had less and less energy. While it was slow at first, and gradually creeping up on him, the last few months have been worse. He misses cutting his roses in his garden. Can't focus to read a book. More than anything he is very very tired. While he did hear what Dr. Delatorre had to say, he has not thought about it in the last couple of months. His and he have not been able to bring themselves to even fill out a POLST form. - Objective/Medical story Objective/Medical Story: This is a claudine 77-year-old white male who was first diagnosed with coronary artery disease in 1972. He was operated on and had bypass surgery in [facility] and had his chest open 3 times because of bleeding complications. His second bypass surgery was in 1986 at [facility]. He then presented with congestive heart failure in 1988 when he was visiting [facility] and had to be airlifted to [facility] and had a third open heart surgery that year. He was then admitted for congestive heart failure in August 2008. He moved to [facility] permanently in 2016. He is already been admitted once for congestive heart failure. He has an ejection fraction of 15%, with ventricular fibrillation and has an AICD in place. He is followed by [facility] cardiology, Dr. Kennedi East and Dr. Delatorre. In speaking to Dr. Delatorre he is status is tenuous. 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 He is developed hypothyroidism from the amiodarone. But is not a candidate for other medications. He has an infrarenal aortic aneurysm and he has a large, large meningioma. Dr. Delatorre says that he is at the end of the road, and most likely i s a candidate for palliative care. He was admitted here because of symptomatic fatigue. He just has no energy. We initially thought he was having a GI bleed because he was anemic and fecal occult blood positive stools. He has had an EGD and there is no ulcer identified. Inputting the overall picture together, this patient most likely has iron deficiency anemia, anemia of chronic disease, and ejection fraction of 15%, and a large meningioma affecting his thought process. His other past medical history is that of reflux disease, foreign body with EGD to remove it in 2014 in [place], benign prostatic hypertrophy, chronic vision loss, glaucoma, and dentures. - Goals of Care Goals of care determinations: He recognizes that he is slowing down, and would like to start making arrangements for end-of-life care. He just does not know where to start. He would like to stop coming to the hospital. While he is alert enough to enjoy his 's company, he finds that to be fading as well. When he could no longer be conscious, no longer enjoy her company, he definitely wants us to let him go. is very interested in transitioning to hospice. - Plan Plan: POLST form filled out today. Comfort measures only. Focus on symptom management and to avoid hospitalization as much as possible. Dr. Delatorre is transitioning to palliative care cardiology with a new practice in April 2018. He hopes to be her first patient Hospice referral made. - Code Status Code Status: Do Not Attempt Resuscitation - Time Spent on Advance Care Planning Time spent on advance care plannin
--- NOTE | 2018-02-27 07:47 | DISCHARGE SUMMARY ---
Physician: Nella Alexis MD DATE OF ADMISSION: 02/21/2018 DATE OF DISCHARGE: 02/22/2018 DISCHARGE DIAGNOSES 1. Fatigue. 2. Chronic blood loss. 3. Anemia of chronic disease from chronic kidney stage 3. 4. Chronic systolic congestive heart failure, [place] [employer] 3. 5. Hyperglycemia. 6. Hypothyroidism. 7. Amiodarone-induced cirrhosis. 8. Infrarenal abdominal aortic aneurysm. 9. Cerebral meningioma. PRINCIPAL PROCEDURES 1. Abdomen and pelvis CT shows lung bases that do not have consolidation or effusion. Moderate cardiomegaly is president. No stones in the kidneys. He has diffusely increased attenuation of the hepatic parenchyma seen with amiodarone usage or mineral deposition. Distention of his urinary bladder. Probable prostatomegaly. An infrarenal saccular abdominal aortic aneurysm at 4.4 x 3.3 cm. Femoral artery stents. 2. Abdominal ultrasound with gallbladder wall thickening, pericholecystic fluid, acalculous cholecystitis is suggested. He has a severely echogenic liver. 3. Chest x-ray: No radiographically apparent acute abnormality in the chest. 4. Blood cultures: No growth after 5 days. 5. Two units of packed cell transfusion. 6. EGD on 02/20/2018 with a normal esophagus and GE junction, stomach, and duodenum. DISCHARGE MEDICATIONS 1. Aspirin 81 mg p.o. daily. 2. Benazepril 5 mg p.o. daily. 3. Vitamin D 2000 units daily. 4. Vitamin B12 at 500 mcg sublingual daily. 5. Folic acid 800 mcg daily. 6. Xalatan 1 drop each eye daily. 7. Magnesium oxide 400 mg p.o. daily. 8. Methimazole 5 mg every other day. 9. Metoprolol succinate 50 mg daily. 10. [place]-3 fish oil capsule p.o. b.i.d. 11. Omeprazole 20 mg daily. 12. Potassium 10 mEq daily. 13. Pravastatin 40 mg daily. 14. Pyridoxine 100 mg daily. 15. Xarelto 15 mg daily. 16. Torsemide 30 mg daily. 17. Amiodarone reduced from 200 mg to 100 mg daily. It should be considered that his pravastatin should be stopped. HOSPITAL COURSE: This is a claudine elderly black male who moved to [facility] in approximately 2017. He has been visiting here for many years, as his is from this area, but they did not formally move here until 2017. Even before moving here, his life had significantly slowed down because of episodes of ventricular fibrillation, consequences of his bypass surgery, congestive heart failure, and he has an AICD that has gone off twice since living here. He used to have a huge britney garden in [place], [place], where he lived. Used to take long walks [place]. Used to come to [facility] to search the cold for agates. But by 2017, his mobility was diminished mainly because of cardiovascular issues with severe dyspnea on exertion, fatigue. He was admitted here in 2017 for [id number] systolic congestive heart failure. He did do cardiopulmonary rehab after that admission and was actually able to regain some of his mobility and endurance. But starting in the summer of 2018, he has gradually been getting slower and slower. Initially, his thought it was because he just did not want to exercise, but they found him to be hyperthyroid from his amiodarone being used for his Afib, and he was put on methimazole. The methimazole was increased from 1 tablet a day up to 3 tablets a day. Then it had to be tapered back down again because he became hypothyroid with his last blood test a month ago. In the last month, he has been significantly more fatigued, increased abdominal bloating, decreased exercise. Just getting up in the morning to get dressed, eat breakfast is exhausting. He is no longer taking any walks at all, he is hardly walking outside the house, much less in the house. He denied any increasing edema, orthopnea is unchanged. He denies chest pain. No increased weight. His AICD has not gone off this fall. He does have a history of peptic ulcer disease dating to the 1980s when an EGD showed ulcer but no active bleeding. An EGD in [place], [place], was done in 2013 because of a piece of chicken stuck in his esophagus. He said he did not have any ulcers then. He finally came to the emergency room when his exhaustion and fatigue with dyspnea on exertion became too great. His abdominal distention was also very uncomfortable. He was evaluated by the emergency room doctor, and his blood pressure was low as 88/79. He received some IV fluids and was up to 101/63. He was afebrile, no respiratory distress, needing 2 liters nasal cannula to saturate anywhere from 92% to 99%. BUN and creatinine were 58 and 2. Liver enzymes were elevated. TSH was up at 18. Hemoglobin was 6.8. His previous liver function studies of 05/2017 check and 02/2017 check were mildly elevated, but not nearly as elevated as they are today. Troponins were negative. Baseline creatinine in 09/2016 was 1.2. For his congestive heart failure, he said his torsemide was doubled, and his creatinine went up to 2.1 in 03/2017. It was down to 1.3 in 07/2017, and it is 2 today. His baseline hemoglobin is usually anywhere between 11.7 and 12.3. On examination, his stool fecal occult blood positive, did not seem to be in congestive heart failure. We initially treated him as a possible GI bleed. Serial hemograms showed him to stay relatively stable with his anemia. In looking at his records, he appears to have anemia of chronic disease because of his kidneys. He was transfused 2 units of blood to get his hemoglobin up to at least 8. We also noted that he was in chronic systolic congestive heart failure, [place] Heart Association class III. We made sure that we did not put him into fluid overload. Xarelto was held, but no reversal agent was given since he did not seem to be actively bleeding. He had no previous history of diabetes but had consistent hyperglycemia in the hospital up to 161. Iron studies done showed him to have iron of 11, TIBC 382, percent saturation 3%. Transferrin 273. Ferritin 29.4. Troponins remain negative. He did seem to have a little bit of hemolysis and that LDH was up to 50, retic count was 4.26, and absolute retic count was 0.114. After 2 units of transfusion, his hemoglobin went up to 8.2 and stayed at 8.0. His liver enzymes were worked up with a CT of the abdomen and pelvis, which showed the cirrhosis. Ultrasound confirms cirrhosis. Hepatitis panel for A, B, and C were all nonreactive. 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 Delatorre. She is his EPS specialist. She states that he had spoken to him about end-of-life wishes in December with his last meeting with her. She felt that with his end-stage congestive heart failure, and inability to stop amiodarone because of the V-fib, he was caught between a rock and a hard place. While she could go down on the amiodarone from 200 to 100 mg a day shot, she felt that he would have increased episodes of ventricular tachycardia with the AICD going off. He was not a candidate for other antiarrhythmics because of comorbidities. At discharge, his bilirubin had gone up even up to 1.8, AST was now 198, ALT 289. I had an advanced care planning discussion with he and his . They acknowledge that they heard Dr. Delatorre, but could not bring themselves to be begin those conversations about end-of-life care. The cannot believe that this is now happening to him. We were able to reminiscent about his wonderful walks, his garden. How much he loved to read, and he gave me a gift of many of the agates he has collected. He and his are able to come to terms with the code status and make sure that he was DO NOT RESUSCITATE. They were also now willing to start conversations with regard to end of life and actually asked to be transitioned to hospice. I explained that in the beginning, and they may not need hospice very much but, towards the end, they may need them more often for symptom management. I do believe he has less than 6 months to live. I echo Dr. Delatorre's concerns. She is transitioning to a palliative care cardiology service in 04/2018, and she hopes to see the patient as one of her first patients. He is discharged in stable condition, but a poor prognosis. Temperature is 36.4, pulse is 67, blood pressure 108/67, respirations 20, 96% on room air. He has minimal JVD in the upright position, but it is still present. Diminished breath sounds at the bases but no tachypnea, no increased respiratory effort. He did have an EGD during his stay looking for ulcers, and none was found. He was found to be very sedated after the EGD and wonder if some of the fentanyl and Versed could be still hanging around because of his chronic kidney disease and his liver failure. He had a regular rate and rhythm with a systolic murmur. The AICD box in place in the upper chest wall. The abdomen is slightly distended but no fluid wave. Nontender. Mildly achy in the right upper quadrant with palpation and I do feel his liver edge. Extremities did not have edema. Greater than 30 minutes was spent coordinating discharge for this claudine man. I have already spoken to Dr. Fierro regarding transition to hospice. They asked if he needed to be seen during his stay. I explained that he did, and they could open him up to hospice in the outpatient setting. TD: 02/27/2018 07:13 [email or web address]
== END 2018-02-22 12:27 | disposition home or self-care (01) | DRG 811 ==
LOC: ED 07:24 → OBS 11:17 → OBSVTOIN 02-21 14:00 → MS2 02-21 14:00
PROVIDERS: ADMIT Specialist; ATTEND Specialist
PROC: 30233N1 Transfusion of Nonautologous Red Blood Cells into Peripheral Vein, Percutaneous Approach (ICD-10-PCS; 2018-02-20)
PROC: 0DJ08ZZ Inspection of Upper Intestinal Tract, Via Natural or Artificial Opening Endoscopic (ICD-10-PCS; principal; 2018-02-20 13:00)
DX: K92.2 Gastrointestinal hemorrhage, unspecified (principal); D64.9 Anemia, unspecified; K27.9 Peptic ulcer, site unspecified, unspecified as acute or chronic, without hemorrhage or perforation; D50.0 Iron deficiency anemia secondary to blood loss (chronic); I49.01 Ventricular fibrillation; N17.9 Acute kidney failure, unspecified; I50.22 Chronic systolic (congestive) heart failure; N18.3 Chronic kidney disease, stage 3 (moderate); I50.9 Heart failure, unspecified; D63.1 Anemia in chronic kidney disease; N28.9 Disorder of kidney and ureter, unspecified; R19.5 Other fecal abnormalities; R14.0 Abdominal distension (gaseous); R73.9 Hyperglycemia, unspecified; D32.9 Benign neoplasm of meninges, unspecified; I25.10 Atherosclerotic heart disease of native coronary artery without angina pectoris; I25.5 Ischemic cardiomyopathy; K21.9 Gastro-esophageal reflux disease without esophagitis; K44.9 Diaphragmatic hernia without obstruction or gangrene; E03.2 Hypothyroidism due to medicaments and other exogenous substances; T38 Poisoning by, adverse effect of and underdosing of hormones and their synthetic substitutes and antagonists, not elsewhere classified; K71.7 Toxic liver disease with fibrosis and cirrhosis of liver; T46.2X5A Adverse effect of other antidysrhythmic drugs, initial encounter; D32.0 Benign neoplasm of cerebral meninges; K81.9 Cholecystitis, unspecified; I71.4 Abdominal aortic aneurysm, without rupture; K22.8 Other specified diseases of esophagus; G89.29 Other chronic pain; M54.5 Low back pain; M54.6 Pain in thoracic spine; H40.9 Unspecified glaucoma; H54.7 Unspecified visual loss; N40.0 Benign prostatic hyperplasia without lower urinary tract symptoms; Z66 Do not resuscitate; Z51.5 Encounter for palliative care; I73.9 Peripheral vascular disease, unspecified; Z95.810 Presence of automatic (implantable) cardiac defibrillator; Z95.1 Presence of aortocoronary bypass graft; Z95.828 Presence of other vascular implants and grafts; I25.2 Old myocardial infarction; Z79.01 Long term (current) use of anticoagulants; Z79.82 Long term (current) use of aspirin; Z87.11 Personal history of peptic ulcer disease; Z87.891 Personal history of nicotine dependence; Z91.81 History of falling; Z79.899 Other long term (current) drug therapy
CPT/HCPCS: 36415; 71046; 74176; 76700; 80053; 80074; 81001; 81003; 82607; 82728; 83540; 83605; 83615; 83690; 84443; 84466; 84484; 85025; 85044; 85610; 85730; 86850; 86870; 86900; 86901; 86920; 86922; 87040; 87086; 93005; 96365; 99284